=== PATIENT | female | born 1935 | race Caucasian/White ===

== ENCOUNTER 2018-08-17 17:58 | Inpatient (IN) | payer MEDICARE, OTHER ==
[2018-08-17] VITALS (12 sets, daily range): BP systolic 61–87; BP diastolic 26–45
[~2018-08-17] VITALS: Ht 157.5 cm; Wt 61.2 kg
[~2018-08-17 17:58] MED LIST: CALC-261 PO; DENO60DI SQ; ESOM40CA PO; EZET10TA13 PO; FLUT200B IH; HYDR12.55 PO; LEVO25TA9 PO; LINA5TAB PO; METF-440 PO; MONT10TA22 PO; PRED20TA PO; SIMV40TA5 PO
[2018-08-17] MEDS ORDERED: ACETAMINOPHEN ES 500 MG TABLET PO ONE (18:15)
[2018-08-17] MEDS ORDERED: IV NORMAL SALINE 1000 ML BAG IV ONE ×3 (18:15→22:15)
[2018-08-17] MEDS ORDERED: ACETAMINOPHEN ES 500 MG TABLET ONE (18:24)
[2018-08-17] MEDS ORDERED: ONDANSETRON 4 MG/2 ML VIAL ONE (18:33)
[2018-08-17] MEDS ORDERED: SIMV40TA2 PO (18:39)
[2018-08-17] MEDS ORDERED: VALS160T2 PO (18:39)
[2018-08-17] MEDS ORDERED: ONDANSETRON IV *ER 4 MG/2 ML VIAL IV ONE (18:45)
[2018-08-17 18:47] LABS: BASOPHILS # (AUTO) 0.1 K/uL (0.0-8.0); BASOPHILS % (AUTO) 0.3 % (0.0-2.0); HEMATOCRIT 25.8 % (31.2-41.9); HEMOGLOBIN 8.2 g/dL (10.9-14.3); LYMPHOCYTES # (AUTO) 1.9 K/uL (20.0-40.0); LYMPHOCYTES % (AUTO) 11.8 % (20.5-51.5); MEAN CORPUSCULAR HEMOGLOBIN 24.3 uug (24.7-32.8); MEAN CORPUSCULAR HGB CONC 32 g/dL (32.3-35.6); MEAN CORPUSCULAR VOLUME 76.1 fL (75.5-95.3); MONOCYTES # (AUTO) 0.7 K/uL (2.0-10.0); MONOCYTES % (AUTO) 4.5 % (0.0-11.0); NEUTROPHILS # (AUTO) 13.5 K/uL (1.8-8.9); NEUTROPHILS % (AUTO) 83.4 % (38.5-71.5); PLATELET COUNT (AUTO) 318 K/uL (179-408); RED BLOOD CELL COUNT(AUTO) 3.39 MIL/uL (3.63-4.92); WHITE BLOOD COUNT (AUTO) 16.2 K/uL (3.8-11.8)
[2018-08-17 18:55] LABS: CARBON DIOXIDE 27 mmol/L (21-32); CHLORIDE 102 mmol/L (98-107); CREATININE 1.4 mg/dL (0.6-1.3); GLUCOSE 94 mg/dL (74-106); POTASSIUM 3.5 mmol/L (3.5-5.1); UREA NITROGEN, BLOOD 15 mg/dL (7-18)
[2018-08-17] MEDS ORDERED: LEVOFLOXACIN 500 MG/D5W 100ML PIGGYBACK IV ONE (19:00)
[2018-08-17] MEDS ORDERED: METRONIDAZOLE 500 MG/NS 100ML 100 ML IV ONE ×2 (19:00→19:07)
[2018-08-17] MEDS ORDERED: VANCOMYCIN IV 1,000 MG in IV DEXTROSE 5% 250 ML IV ONE (19:00)
[2018-08-17 19:07] LABS: ALANINE AMINOTRANSFERASE 20 U/L (14-59); ALKALINE PHOSPHATASE 47 U/L (50-136); ASPARTATE AMINOTRANSFERASE 32 U/L (15-37); BILIRUBIN,DIRECT 0.1 mg/dL (0.0-0.2); BILIRUBIN,TOTAL 0.3 mg/dL (0.2-1.0); TOTAL PROTEIN, SERUM 6.7 g/dL (6.4-8.2)
[2018-08-17] MEDS ORDERED: MORPHINE SULFATE 4 MG/1 ML DISP.SYRIN IV ONE (19:15)
[2018-08-17] MEDS ORDERED: MORPHINE SULFATE 4 MG/1 ML DISP.SYRIN ONE (19:17)
[2018-08-17 19:37] LABS: ABG BASE EXCESS -1.1 mmol/L; ABG HCO3 23.3 mmol/L; ABG PCO2 37.4 mmHg (35.0-45.0); ABG PH 7.413 (7.350-7.450); ABG PO2 85.7 mmHg (75.0-100.0); ABG SITE LEFT BRACHIAL; ABG TOTAL HEMOGLOBIN 8.3 G/dL (12.0-16.0); COHb 1.6 % (0.5-1.5); MetHb 0.3 % (0.0-1.5); O2Hb 94.5 % (94.0-97.0); VENT MODE Nasal Cannula
[2018-08-17] MEDS ORDERED: LEVOFLOXACIN 500 MG/D5W 100 ML ONE (19:45)
--- NOTE | 2018-08-17 19:56 | NUR ---
Paged Dr. Mason Acosta for [facility] panel call, awaiting call back - attempt #1
--- NOTE | 2018-08-17 19:58 | NUR ---
YAMILKA LAROSE ON THE PHONE W/ DR. TEX BORJAS.
[2018-08-17] MEDS ORDERED: ONDANSETRON 4 MG/2 ML VIAL IV PRN (20:30)
[2018-08-17] MEDS ORDERED: Z GUARD REMEDY PASTE 57 GM TUBE TOP PRN (20:30)
[2018-08-17] MEDS ORDERED: ENOXAPARIN SODIUM 40 MG/0.4 ML DISP.SYRIN SQ SCH (20:30)
[2018-08-17] MEDS ORDERED: MAGNESIUM HYDROXIDE 30 ML LIQUID UDC PO PRN (20:30)
[2018-08-17] MEDS ORDERED: VANCOMYCIN IV 200 ML ONE (20:33)
[2018-08-17 20:42] LABS: *BILIRUBIN,URIN 1+ (NEGATIVE); *BLOOD, URINE 3+ (NEGATIVE); *CLARITY,URINE SLIGHTLY CLOUDY (CLEAR); *COLOR,URINE DARK YELLOW (YELLOW); *KETONES,URINE TRACE (NEGATIVE); *PROTEIN,URINE 2+ (NEGATIVE); *UROBILINOGEN,URINE 0.2 E.U./dl (NORMAL); LEUKOCYTE ESTERASE ,URINE NEGATIVE (NEGATIVE); NITRITE, URINE NEGATIVE (NEGATIVE); UGLUCOSE NEGATIVE (NEGATIVE)
[2018-08-17 21:05] LABS: MUCUS,URINE MANY /LPF (0-FEW); RBC,URINE 20-50 /HPF (0-3); SQUAMOUS EPITHELIAL CELL,UR FEW /HPF (NONE SEEN); WBC,URINE 0-3 /HPF (0-3)
--- NOTE | 2018-08-17 21:20 | NUR ---
Ultrasound at bedside.
--- NOTE | 2018-08-17 21:43 | NUR ---
Report given to Aminata EWING Tele.
--- NOTE | 2018-08-17 21:50 | NUR ---
Pt placed in trendelenburg position, fluid bolus started.
--- NOTE | 2018-08-17 21:50 | NUR ---
Pt's blood pressure low. MD notified.
[2018-08-17] MEDS ORDERED: CEFTRIAXONE 1 G in IV DEXTROSE 5% 50 ML IV SCH (22:30)
[2018-08-17] MEDS ORDERED: AZITHROMYCIN IV 500 MG in IV DEXTROSE 5% 250 ML IV SCH (23:00)
--- NOTE | 2018-08-17 23:10 | NUR ---
NSG: pt received fr er via gurney with dx of sepsis, pneumonia. a/o x 4. tele, NSR. however, pt is hypotensive with bp of 79/39 HR 110, 62/27 HR 75, on 4L nc saturating only at 84%. pt is asymptomatic. MOBILE MARKETING MANAGER is called. see documented bp's. charge nurse, supervisor parking lot, RT are aware.
--- NOTE | 2018-08-17 23:20 | NUR ---
nsg: pt currently receving ns bolus fr ER that was not infused. l/m with Dr. Cisse regarding hypotension. awaiting call back.
--- NOTE | 2018-08-17 23:50 | NUR ---
nsg: called exchange and paged Dr. Mason Acosta. awaiting call back.
[2018-08-18] VITALS (69 sets, daily range): BP systolic 66–143; BP diastolic 33–83
[2018-08-18] MEDS ORDERED: AZITHROMYCIN 500 MG VIAL IV ONE (00:32)
[2018-08-18] MEDS ORDERED: CEFTRIAXONE 1 G VIAL ONE (00:32)
--- NOTE | 2018-08-18 01:00 | NUR ---
nsg: paged Dr. Yin, equipment monitor phototypesetting for Dr. Acosta to notify regarding pt being hypotensive. awaiting call back.
--- NOTE | 2018-08-18 01:30 | NUR ---
nsrd ns bolus completed. bp is now 68/33, hr 68. paged Dr. Yin. received order to transfer to icu. charge nurse, supervisor cell efficiency aware.
--- NOTE | 2018-08-18 01:30 | NUR ---
nsg: unable to take pictures of left later malleolus pressure ulcer and right 2nd toe pressure ulcer. pt is very hypotensive. endorsed to GILDARDO Oconnor in ccu. per nurse, will take photos.
--- NOTE | 2018-08-18 01:40 | NUR ---
BIB BED TO ICU, PT A/A/O TIMES 4,NO DISTRESS NOTED OR VOICED. SKIN WARM AND DRY.
--- NOTE | 2018-08-18 01:50 | NUR ---
nsg: pt transferred to icu, report given to GILDARDO Oconnor.
[2018-08-18] MEDS: IV NS 1000 ML 1,000 ML IV PRN ×2 (02:15→22:06)
--- NOTE | 2018-08-18 02:25 | NUR ---
INFORMED DR. SEAY ABOUT B/P 66,,GOT ORDER FOR LEVOPHED.
[2018-08-18] MEDS ORDERED: NOREPINEPHRINE BITARTRATE 4 MG/4 ML VIAL IV ONE (02:30)
[2018-08-18] MEDS ORDERED: NOREPINEPHRINE BITARTRATE 8 MG in IV DEXTROSE 5% 500 ML IV PRN ×4 (02:30)
--- NOTE | 2018-08-18 02:35 | NUR ---
STARTED LEVOPHED, AT 5MCG, BUT WAS UNABLE TO SCAN THE MED.
[2018-08-18 06:18] LABS: HEMATOCRIT 23.1 % (31.2-41.9); LYMPHOCYTES # (AUTO) 0.4 K/uL (20.0-40.0); LYMPHOCYTES % (AUTO) 3.5 % (20.5-51.5); MEAN CORPUSCULAR HEMOGLOBIN 24.3 uug (24.7-32.8); MEAN CORPUSCULAR HGB CONC 32 g/dL (32.3-35.6); MEAN CORPUSCULAR VOLUME 76.3 fL (75.5-95.3); MONOCYTES # (AUTO) 0.5 K/uL (2.0-10.0); MONOCYTES % (AUTO) 4.2 % (0.0-11.0); NEUTROPHILS # (AUTO) 10.4 K/uL (1.8-8.9); NEUTROPHILS % (AUTO) 92.3 % (38.5-71.5); PLATELET COUNT (AUTO) 265 K/uL (179-408); RED BLOOD CELL COUNT(AUTO) 3.02 MIL/uL (3.63-4.92); WHITE BLOOD COUNT (AUTO) 11.3 K/uL (3.8-11.8)
[2018-08-18 06:30] LABS: HEMOGLOBIN 7.4 g/dL (10.9-14.3)
[2018-08-18 06:35] LABS: CARBON DIOXIDE 24 mmol/L (21-32); CHLORIDE 111 mmol/L (98-107); CHOLESTEROL 86 mg/dL (<200); CREATININE 1.1 mg/dL (0.6-1.3); GLUCOSE 154 mg/dL (74-106); HDL CHOLESTEROL 73 mg/dL (40-60); MAGNESIUM 1.3 mg/dL (1.8-2.4); PHOSPHOROUS 3.5 mg/dL (2.5-4.9); POTASSIUM 3.9 mmol/L (3.5-5.1); TRIGLYCERIDES 47 MG/DL (30-150); UREA NITROGEN, BLOOD 15 mg/dL (7-18)
--- NOTE | 2018-08-18 06:40 | NUR ---
DR SEAY INFORMED OF HGB 7.4. NO ORDERS OBTAINED.
[2018-08-18 06:42] LABS: THYROID STIMULATING HORMONE 0.934 mIU/mL (0.358-3.740)
--- NOTE | 2018-08-18 07:00 | NUR ---
CONTINUES TO NEED PRESSOR TO SUPPORT B/P,SATS 98 % ON 2 L
--- NOTE | 2018-08-18 08:00 | NUR ---
DOCTOR KOLTON IN UNIT TO SEE PATIENT.
[2018-08-18] MEDS ORDERED: DEXTROSE 50% 50 ML DISP.SYRIN IV PRN (08:15)
[2018-08-18] MEDS: LEVOTHYROXINE SODIUM 25 MCG TABLET PO SCH (08:29)
[2018-08-18] MEDS: MAGNESIUM SULFATE/D5W 100 ML IV SCH ×2 (08:29→11:07)
[2018-08-18] MEDS: PANTOPRAZOLE SODIUM 40 MG TABLET.DR PO SCH (08:29)
[2018-08-18] MEDS: VALSARTAN 160 MG TABLET PO SCH (08:31)
[2018-08-18] MEDS: LEVOFLOXACIN 750MG/D5W 750 MG in PREMIXED 1 EACH IV SCH (08:31)
[2018-08-18] MEDS ORDERED: METFORMIN HCL 500 MG TABLET PO SCH (09:00)
[2018-08-18] MEDS: FLUTICASONE/VILANTEROL 1 EACH BLST.W.DEV INH SCH (09:00)
[2018-08-18] MEDS ORDERED: CEFEPIME HCL 2 G in IV DEXTROSE 5% 100 ML IV ONE (09:00)
[2018-08-18] MEDS: BLOOD SUGAR DIAGNOSTIC 1 EACH STRIP VI SCH ×4 (09:20→21:19)
[2018-08-18] MEDS: HYDROCODONE/APAP 5-325MG TABLET PO PRN ×2 (09:22→20:30)
[2018-08-18] MEDS: predniSONE 20 MG TABLET PO SCH (09:24)
[2018-08-18] MEDS: EZETIMIBE 10 MG TABLET PO SCH (09:26)
[2018-08-18] MEDS: LIDOCAINE 5% PATCH TD SCH (09:26)
[2018-08-18] MEDS: INSULIN REGULAR, HUMAN 300 UNIT/3 ML VIAL SQ PRN ×2 (09:30→17:09)
--- NOTE | 2018-08-18 10:00 | NUR ---
PT IN THE ROOM WORKING WITH PATIENT. PATIENT IS ONLY ABLE TO SIT UP IN BED AND PATIENT STARTED TO COMPLAIN OF SOB WHEN GETTING OUT OF BED. PATIENT SATURATION STABLE PRIOR TO WORKING WITH PATIENT.
[2018-08-18] MEDS: CEFEPIME HCL 2 G in IV DEXTROSE 5% 100 ML IV SCH (11:07)
--- NOTE | 2018-08-18 11:55 | NUR ---
WOUND CARE CONSULT: PT PRESENTS WITH DRY ULCERS TO BILATERAL FEET, PRESENT ON ADMISSION. RECOMMEND DPM CONSULT. PT ABLE TO ASSIST WITH TURNING AND REPOSITIONING IN BED. ALL SKIN PROTECTION MEASURES IN PLACE AND DISCUSSED WITH NURSING STAFF. WILL SEE PRN. LAROSE IN AGREEMENT WITH PLAN OF CARE. Addendum: 08/18/18 at 1157 by VALERI ADAMS RN Amended: Links added.
--- NOTE | 2018-08-18 12:08 | NUR ---
doctor jenniffer and station usher in unit for new consult.
--- NOTE | 2018-08-18 14:30 | NUR ---
PODIATRY IN THE UNIT FOR NEW CONSULTATION. RECOMMENDS OINMENT TREATEMENT TO WOUND
[2018-08-18] MEDS: MONTELUKAST SODIUM 10 MG TABLET PO SCH (17:02)
[2018-08-18] MEDS: SIMVASTATIN 40 MG TABLET PO SCH (17:02)
--- NOTE | 2018-08-18 20:00 | NUR ---
Pt in room alert awake in no acute distress. States pain to lower back area. No s/s of hyper/hypoglycemia. Maintaining IV fluids NS at 75cc/hr. Able to make needs known. Reminded pt to request for assistance when needed. BNo adverse effect to previous antibiotic therapy earlier today. No levophed at this time as SBP is >90. Pt on continuous 2L/min via n/c. No fever or chills. Encouraged patient on fluids and safety. Able to reposition self. Call light within reach. Will continue to monitor. school lunch monitor sinus rhythm.
[2018-08-18] MEDS ORDERED: DEXTROSE 5% IV SCH (21:00)
[2018-08-18] MEDS ORDERED: CEFEPIME HCL IV SCH (21:00)
[2018-08-19] VITALS (23 sets, daily range): BP systolic 99–145; BP diastolic 47–84
[2018-08-19 05:18] LABS: EOSINOPHILS # (AUTO) 0.2 K/uL (0.0-0.7); MONOCYTES # (AUTO) 0.5 K/uL (2.0-10.0); NEUTROPHILS # (AUTO) 7.7 K/uL (1.8-8.9)
[2018-08-19 05:19] LABS: BASOPHILS % (AUTO) 0.3 % (0.0-2.0); EOSINOPHILS % (AUTO) 2.3 % (0.0-7.0); LYMPHOCYTES # (AUTO) 0.4 K/uL (20.0-40.0); LYMPHOCYTES % (AUTO) 4.6 % (20.5-51.5); MEAN CORPUSCULAR HEMOGLOBIN 24.3 uug (24.7-32.8); MEAN CORPUSCULAR HGB CONC 33 g/dL (32.3-35.6); MEAN CORPUSCULAR VOLUME 74.1 fL (75.5-95.3); MONOCYTES % (AUTO) 6.2 % (0.0-11.0); NEUTROPHILS % (AUTO) 86.6 % (38.5-71.5); PLATELET COUNT (AUTO) 207 K/uL (179-408); RED BLOOD CELL COUNT(AUTO) 2.66 MIL/uL (3.63-4.92); WHITE BLOOD COUNT (AUTO) 8.9 K/uL (3.8-11.8)
[2018-08-19 05:27] LABS: CARBON DIOXIDE 24 mmol/L (21-32); CHLORIDE 113 mmol/L (98-107); GLUCOSE 112 mg/dL (74-106); MAGNESIUM 1.9 mg/dL (1.8-2.4); PHOSPHOROUS 2.2 mg/dL (2.5-4.9); POTASSIUM 3.6 mmol/L (3.5-5.1); UREA NITROGEN, BLOOD 14 mg/dL (7-18)
[2018-08-19 05:37] LABS: HEMATOCRIT 19.7 % (31.2-41.9); HEMOGLOBIN 6.5 g/dL (10.9-14.3)
[2018-08-19 06:07] LABS: LYMPHOCYTES % (MANUAL) 10 % (20-40); METAMYELOCYTES % 1 % (0-1); MONOCYTES % (MANUAL) 1 % (2-10); MYELOCYTES % 3 % (0-0); NEUTROPHILS % (MANUAL) 84 % (42-75)
--- NOTE | 2018-08-19 06:12 | NUR ---
PT'S CRITICAL LAB VALUE OF HGB REPORTED 6.5. PHONE CALL MADE FOR REBECA SEAY DENT REMOVER. NO ACTIVE BLEEDING NOTED AT THIS TIME.
--- NOTE | 2018-08-19 06:34 | NUR ---
REBECA SEAY RETURNED CALL REGARDING HGB OF 6.5 AND ORDERED TO INFUSE 1 UNIT PRBC.
--- NOTE | 2018-08-19 06:57 | NUR ---
NO S/S OF ACUTE DISTRESS OVERNIGHT. ABLE TO SLEEP 4-5 HOURS. BUSHEL WORKER MAINTAINING SINUS RHYTHM. ABLE TO MAKE NEEDS KNOWN. MAINTAINING IV FLUIDS NS AT 75CC/HR. NO S/S OF HYPER/HYPOGLYCEMIA. SAFETY MEASURES ENFORCED. CALL LIGHT WITHIN REACH.
--- NOTE | 2018-08-19 07:14 | NUR ---
PT STATED SHE WANTS HER PROTONIX AND NORCO TOGETHER AFTER BREAKFAST. WILL ENDORSE TO DAY SHIFT. NURSE.
--- NOTE | 2018-08-19 07:46 | NUR ---
ERGONOMICS CONSULTANT RIGHT FOOT WOUND TREATMENTS CLARIFIED WITH DPM.
[2018-08-19] MEDS: PANTOPRAZOLE SODIUM 40 MG TABLET.DR PO SCH (07:57)
[2018-08-19] MEDS: LEVOTHYROXINE SODIUM 25 MCG TABLET PO SCH (07:57)
[2018-08-19] MEDS: BLOOD SUGAR DIAGNOSTIC 1 EACH STRIP VI SCH ×4 (08:04→20:10)
[2018-08-19] MEDS: VALSARTAN 160 MG TABLET PO SCH (08:38)
[2018-08-19] MEDS: THERAHONEY GEL 1.5 OZ TUBE TOP SCH (08:39)
[2018-08-19] MEDS: LIDOCAINE 5% PATCH TD SCH (08:39)
[2018-08-19] MEDS: EZETIMIBE 10 MG TABLET PO SCH (08:39)
[2018-08-19] MEDS: predniSONE 20 MG TABLET PO SCH (08:39)
[2018-08-19] MEDS: FLUTICASONE/VILANTEROL 1 EACH BLST.W.DEV INH SCH (08:56)
[2018-08-19] MEDS ORDERED: COLLAGENASE OINT 30 GM TUBE TOP SCH (09:00)
[2018-08-19] MEDS: CEFEPIME HCL 2 G in IV DEXTROSE 5% 100 ML IV SCH (09:39)
--- NOTE | 2018-08-19 09:45 | NUR ---
Nursing Note: Respirations unlabored with 02 at 1lpm via NC. Consumed 100% of breakfast. Skin clean and dry intact. Wounds noted on bilateral feet. Treatment provided as ordered. BGL 115. No insulin indication. 1 unit of RBC began at 0917. No transfusion reaction noted at this time. Bed in low and locked position. Call light in reach. Frequent visual checks done throughout shift. .
--- NOTE | 2018-08-19 11:43 | NUR ---
Spoke with Dr. Cuevas on the telephone. Full report given. stated that it was okay to downgrade pt to telemetry status.
[2018-08-19 12:17] LABS: IRON, SERUM 7 ug/dL (50-175)
--- NOTE | 2018-08-19 13:30 | NUR ---
Transferred pt to 208-T with GILDARDO Masterson. Pt stable and nad noted upon transfer.
[2018-08-19] MEDS: IV NS 1000 ML 1,000 ML IV PRN (15:26)
[2018-08-19] MEDS ORDERED: NEUTRA PHOS PACKET PO ONE (16:15)
[2018-08-19] MEDS: HYDROCODONE/APAP 5-325MG TABLET PO PRN (16:42)
[2018-08-19 17:29] LABS: HEMATOCRIT 25.5 % (31.2-41.9); HEMOGLOBIN 8.4 g/dL (10.9-14.3)
--- NOTE | 2018-08-19 18:09 | NUR ---
PATIENT WAS TRANSFERRED FROM CCU TO ROOM-208 ON TELEMETRY. PATIENT REMAINS IN STABLE CONDITION. PATIENT DENIES ANY PAIN OR DISCOMFORT. PATIENT SHOWS NO SIGNS OF DISTRESS. PATIENT IS COMPLIANT WITH MEDICAL TREATMENT AND REGIMEN. PATIENT HEMOGLOBIN INCREASE TO 8.4 AFTER 1 UNIT INFUSION OF BLOOD IN CCU. PATIENT IS ALERT AND ORIENTED X4. PATIENT IS ABLE TO VOCALIZE NEEDS. NURSE FROM CCU REPORTED THAT PATIENT HAS A BM PRIOR TO TRANSFER. PATIENTS BM WAS HARD, FORMED, BIG AND BROWN. WILL CONTINUE TO MONITOR PATIENT CLOSELY.
[2018-08-19] MEDS: SIMVASTATIN 40 MG TABLET PO SCH (18:23)
[2018-08-19] MEDS: MONTELUKAST SODIUM 10 MG TABLET PO SCH (18:23)
--- NOTE | 2018-08-19 19:45 | NUR ---
Received pt awake sitting in bed, alert and oriented x3. Farsi speaking but understands [place]. Discussed and reviewed plan of care. Pt compliant with care. Antibiotic therapy noted. Pt has no complaints of pain, SOB or severe headache at this time. Pt shows no s/s of acute distress. Safety precautions implemented. Bed on lowest position, call light within reach. Will continue to monitor pt and carry out all orders.
[2018-08-19] MEDS: LACTOBACILLUS RHAMNOSUS GG 1 EACH CAPSULE PO SCH (20:06)
[2018-08-20 03:35] VITALS: BP 152/79
[2018-08-20] MEDS: ACETAMINOPHEN 325 MG TABLET PO PRN (04:56)
[2018-08-20 06:41] LABS: BASOPHILS % (AUTO) 0.3 % (0.0-2.0); EOSINOPHILS # (AUTO) 0.2 K/uL (0.0-0.7); EOSINOPHILS % (AUTO) 2.2 % (0.0-7.0); HEMATOCRIT 24.4 % (31.2-41.9); HEMOGLOBIN 8.1 g/dL (10.9-14.3); LYMPHOCYTES # (AUTO) 0.8 K/uL (20.0-40.0); LYMPHOCYTES % (AUTO) 9.1 % (20.5-51.5); MEAN CORPUSCULAR HEMOGLOBIN 25.4 uug (24.7-32.8); MEAN CORPUSCULAR HGB CONC 33 g/dL (32.3-35.6); MEAN CORPUSCULAR VOLUME 76.6 fL (75.5-95.3); MONOCYTES # (AUTO) 0.7 K/uL (2.0-10.0); MONOCYTES % (AUTO) 7.5 % (0.0-11.0); NEUTROPHILS # (AUTO) 7.4 K/uL (1.8-8.9); NEUTROPHILS % (AUTO) 80.9 % (38.5-71.5); PLATELET COUNT (AUTO) 222 K/uL (179-408); RED BLOOD CELL COUNT(AUTO) 3.19 MIL/uL (3.63-4.92); WHITE BLOOD COUNT (AUTO) 9.1 K/uL (3.8-11.8)
[2018-08-20 06:44] LABS: CARBON DIOXIDE 22 mmol/L (21-32); CHLORIDE 111 mmol/L (98-107); CREATININE 0.8 mg/dL (0.6-1.3); GLUCOSE 97 mg/dL (74-106); MAGNESIUM 1.7 mg/dL (1.8-2.4); PHOSPHOROUS 1.7 mg/dL (2.5-4.9); POTASSIUM 3.5 mmol/L (3.5-5.1); UREA NITROGEN, BLOOD 9 mg/dL (7-18)
[2018-08-20] MEDS: LEVOTHYROXINE SODIUM 25 MCG TABLET PO SCH (06:45)
[2018-08-20] MEDS: IV NS 1000 ML 1,000 ML IV PRN (06:45)
--- NOTE | 2018-08-20 06:45 | NUR ---
Pt slept intermittently throughout the night. Pt awake, alert and oriented x3, cooperative with care. Tele SR with HR 70. O2 sat 98% via 2L NC. Pt has no complaints of pain, SOB at this time. Kept pt dry and clean throughout the night. Safety precautions maintained at all times. Call light within reach. Will endorse accordingly.
[2018-08-20] MEDS: BLOOD SUGAR DIAGNOSTIC 1 EACH STRIP VI SCH ×4 (06:47→20:20)
[2018-08-20] MEDS: LACTOBACILLUS RHAMNOSUS GG 1 EACH CAPSULE PO SCH ×2 (07:51→20:19)
[2018-08-20] MEDS: PANTOPRAZOLE SODIUM 40 MG VIAL IV SCH (07:51)
[2018-08-20] MEDS: LEVOFLOXACIN 750MG/D5W 750 MG in PREMIXED 1 EACH IV SCH (09:00)
[2018-08-20] MEDS: FLUTICASONE/VILANTEROL 1 EACH BLST.W.DEV INH SCH (09:00)
[2018-08-20] MEDS: THERAHONEY GEL 1.5 OZ TUBE TOP SCH (09:00)
[2018-08-20] MEDS: DOCUSATE SODIUM 250 MG CAPSULE PO SCH (10:22)
[2018-08-20] MEDS: VALSARTAN 160 MG TABLET PO SCH (10:23)
[2018-08-20] MEDS: predniSONE 20 MG TABLET PO SCH (10:24)
[2018-08-20] MEDS: LIDOCAINE 5% PATCH TD SCH (10:24)
[2018-08-20] MEDS: EZETIMIBE 10 MG TABLET PO SCH (10:24)
[2018-08-20 11:13] VITALS: BP 140/74
[2018-08-20] MEDS: MAGNESIUM SULFATE/D5W 100 ML IV SCH ×2 (12:43→14:58)
[2018-08-20] MEDS: NEUTRA PHOS PACKET PO ONE ×2 (15:30→16:54)
[2018-08-20 15:36] VITALS: BP 151/79
[2018-08-20] MEDS: MONTELUKAST SODIUM 10 MG TABLET PO SCH (17:53)
[2018-08-20] MEDS: SIMVASTATIN 40 MG TABLET PO SCH (17:54)
[2018-08-20 20:17] VITALS: BP 153/69
[2018-08-21] VITALS: BP 158/79
[2018-08-21] MEDS: ACETAMINOPHEN 325 MG TABLET PO PRN (03:13)
[2018-08-21] MEDS: VALSARTAN 160 MG TABLET PO SCH (03:21)
[2018-08-21 04:05] VITALS: BP 156/79
--- NOTE | 2018-08-21 06:20 | NUR ---
Patient rested well in between care; no acute distress; c/o pain during the shift and medicated with tylenol; pt's IVF held per patient's request; assisted with hygiene needs; blood pressure this AM elevated sbp 160s; pt requested diovan to be given early; current BP 136/60; continue to monitor; continue plan of care.
[2018-08-21 06:33] VITALS: BP 136/60
[2018-08-21] MEDS: BLOOD SUGAR DIAGNOSTIC 1 EACH STRIP VI SCH ×4 (06:33→20:25)
[2018-08-21] MEDS: LEVOTHYROXINE SODIUM 25 MCG TABLET PO SCH (06:35)
[2018-08-21 06:52] LABS: CARBON DIOXIDE 24 mmol/L (21-32); CHLORIDE 110 mmol/L (98-107); CREATININE 0.7 mg/dL (0.6-1.3); GLUCOSE 84 mg/dL (74-106); POTASSIUM 3.7 mmol/L (3.5-5.1); UREA NITROGEN, BLOOD 6 mg/dL (7-18)
--- NOTE | 2018-08-21 07:41 | NUR ---
RECEIVED PATIENT ON BED, RESTING WELL . NO DISTRESS NOTED.
--- NOTE | 2018-08-21 07:45 | NUR ---
right foot swollen, light redness
--- NOTE | 2018-08-21 08:30 | NUR ---
SPOUSE AT BEDSIDE, SUPPORTIVE OF PATIENT CARE. PATIENT OF SPOUSE VISIT.
[2018-08-21] MEDS: DOCUSATE SODIUM 250 MG CAPSULE PO SCH (09:00)
[2018-08-21] MEDS: LIDOCAINE 5% PATCH TD SCH (09:07)
[2018-08-21] MEDS: EZETIMIBE 10 MG TABLET PO SCH (09:08)
[2018-08-21] MEDS: PANTOPRAZOLE SODIUM 40 MG VIAL IV SCH (09:08)
[2018-08-21] MEDS: LACTOBACILLUS RHAMNOSUS GG 1 EACH CAPSULE PO SCH ×2 (09:08→20:22)
[2018-08-21] MEDS: predniSONE 20 MG TABLET PO SCH (09:10)
[2018-08-21] MEDS: FLUTICASONE/VILANTEROL 1 EACH BLST.W.DEV INH SCH (09:13)
[2018-08-21] MEDS: THERAHONEY GEL 1.5 OZ TUBE TOP SCH (09:36)
[2018-08-21 11:25] VITALS: BP 134/74
--- NOTE | 2018-08-21 12:00 | NUR ---
PATIENT REFUSED LUNCH, ATE FOOD FROM OUTSIDE. PATIENT AWARE OF ORDERED DIET AT HOSPITAL, NEED TO CHECK BS PRIOR TO EATING. VERBALIZED UNDERSTANDING.
[2018-08-21] MEDS ORDERED: NEUTRA PHOS PACKET PO ONE (12:45)
--- NOTE | 2018-08-21 13:06 | NUR ---
SON AT BEDSIDE FOR VISIT, SUPPORTIVE OF PATIENT CARE.
[2018-08-21] MEDS: IV NS 1000 ML 1,000 ML IV PRN (13:21)
--- NOTE | 2018-08-21 13:30 | NUR ---
AWARE REQUEST FOR EGD, COLONOSCOPY. PREFER TO SIGN CONCERT WHEN SON VISITS BUT AGREED TO DO PREPARATION.VERBalized understanding clear liquid starts dinner.
[2018-08-21] MEDS: AMLODIPINE 5 MG TABLET PO SCH ×2 (13:52→20:23)
[2018-08-21] MEDS: SOD FERRIC GLUC COMPLX/SUCROSE 125 MG in IV NORMAL SALINE 100 ML IV SCH (15:04)
[2018-08-21 15:07] VITALS: BP 152/76
--- NOTE | 2018-08-21 15:19 | NUR ---
SEEN BY DR SAWYER, MADE ORDER AND CARRIED OUT.
[2018-08-21] MEDS: MONTELUKAST SODIUM 10 MG TABLET PO SCH (17:28)
[2018-08-21] MEDS: SIMVASTATIN 40 MG TABLET PO SCH (17:28)
[2018-08-21] MEDS: INSULIN REGULAR, HUMAN 300 UNIT/3 ML VIAL SQ PRN (17:31)
--- NOTE | 2018-08-21 17:45 | NUR ---
COMFORTABLE. DENIES ACUTE DISTRESS. APPETITE GOOD, VOIDING WELL. STARTED CLEAR LIQUID, AWARE TILL GI PROCEDURE . VERBALIZED UNDERSTANDING.
[2018-08-21 20:01] VITALS: BP 138/64
[2018-08-22] VITALS: BP 134/73
[2018-08-22] MEDS: TRAMADOL HCL 50 MG TABLET PO PRN ×2 (01:31→02:48)
--- NOTE | 2018-08-22 01:33 | NUR ---
pNT WOKE UP AND COMPLAINED ABOUT HEADACHE, ULTRAM 50 MG WAS GIVEN
[2018-08-22] MEDS: IV NS 1000 ML 1,000 ML IV PRN ×2 (02:42→18:00)
--- NOTE | 2018-08-22 03:04 | NUR ---
MISTAKE WAS MADE, INSTEAD OF REASSESSMENT ADMINISTER BUTTON WAS PUSHED TWICE. uLTRAM 50 MG WAS GIVEN ONLY ONE TIME AT 01.31AM AND REASSESSMENT WAS DONE AT 02.42AM.
[2018-08-22 04:01] VITALS: BP 137/64
[2018-08-22] MEDS ORDERED: LEVOFLOXACIN 750 MG TABLET PO SCH ×2 (06:00→10:36)
[2018-08-22 06:24] LABS: CARBON DIOXIDE 24 mmol/L (21-32); CHLORIDE 110 mmol/L (98-107); CREATININE 0.6 mg/dL (0.6-1.3); GLUCOSE 84 mg/dL (74-106); POTASSIUM 3.5 mmol/L (3.5-5.1); UREA NITROGEN, BLOOD 7 mg/dL (7-18)
[2018-08-22] MEDS: BLOOD SUGAR DIAGNOSTIC 1 EACH STRIP VI SCH ×4 (06:25→20:08)
[2018-08-22] MEDS: PANTOPRAZOLE SODIUM 40 MG TABLET.DR PO SCH (06:26)
[2018-08-22] MEDS: LEVOTHYROXINE SODIUM 25 MCG TABLET PO SCH (06:30)
--- NOTE | 2018-08-22 07:50 | NUR ---
Recevied patient awake on low back rest, on oxygen support via nasal cannula, maintained. Noted with IVF infusing well. Will maintain on clear liquids, scheduled for colonoscopy. Bed in lowest position, side rails kept up x 2, call light within reach. Will continue to monitor.
[2018-08-22] MEDS ORDERED: MAGNESIUM CITRATE 296 ML BOTTLE PO ONE (08:00)
[2018-08-22] MEDS ORDERED: GOLYTELY 4000 ML BOTTLE PO ONE (08:00)
[2018-08-22] MEDS: LACTOBACILLUS RHAMNOSUS GG 1 EACH CAPSULE PO SCH ×2 (08:22→20:08)
[2018-08-22] MEDS: DOCUSATE SODIUM 250 MG CAPSULE PO SCH (08:22)
[2018-08-22] MEDS: EZETIMIBE 10 MG TABLET PO SCH (08:22)
[2018-08-22] MEDS: VALSARTAN 160 MG TABLET PO SCH (08:26)
[2018-08-22] MEDS: AMLODIPINE 5 MG TABLET PO SCH ×2 (08:26→20:05)
[2018-08-22] MEDS: predniSONE 20 MG TABLET PO SCH (08:27)
[2018-08-22] MEDS: FLUTICASONE/VILANTEROL 1 EACH BLST.W.DEV INH SCH (08:40)
[2018-08-22] MEDS: THERAHONEY GEL 1.5 OZ TUBE TOP SCH (09:00)
[2018-08-22] MEDS: LIDOCAINE 5% PATCH TD SCH ×2 (09:00→10:43)
[2018-08-22] MEDS: SODIUM HYPOCHLORITE 0.125% 473 ML BOTTLE TP SCH (10:40)
[2018-08-22] MEDS: CADEXOMER IODINE 40 GM TUBE TOP SCH (10:41)
[2018-08-22 11:47] VITALS: BP 125/68
[2018-08-22] MEDS ORDERED: NEUTRA PHOS PACKET PO ONE (12:00)
[2018-08-22] MEDS: SOD FERRIC GLUC COMPLX/SUCROSE 125 MG in IV NORMAL SALINE 100 ML IV SCH (14:34)
[2018-08-22 16:03] VITALS: BP 150/77
[2018-08-22] MEDS: SIMVASTATIN 40 MG TABLET PO SCH (17:40)
[2018-08-22] MEDS: MONTELUKAST SODIUM 10 MG TABLET PO SCH (17:40)
[2018-08-22] MEDS: ASCORBIC ACID 500 MG TABLET PO SCH (17:40)
--- NOTE | 2018-08-22 18:05 | NUR ---
Patient awake in bed, alert and oriented x 4, not in any form of distress. Maintained oxygen support at 2lpm via nasal canula. IVF infusing well at right hand. Noted scheduled for colonoscopy tomorrow morning, son came and signed consent for the procedure, attached to chart. Noted patient on GI prep for colonoscopy, has had 5 bowel movements this shift but still not clear. Bed in low position, side rails up x 2, call light within reach. No complaints made at this time. Will continue to monitor.
--- NOTE | 2018-08-22 19:45 | NUR ---
Received pt sitting up in bed awake. Pt alert and oriented x3. Discussed and reviewed plan of care with pt. Pt cooperative with care. O2 sat 98% with 2L NC. Pt has no complaints at this time. Denies SOB or pain. Pt aware of scheduled EGD and colonoscopy in AM. Aware of bowel prep. Consent signed, in pt chart. Safety precautions implemented, bed in low locked position. Call light within reach. Will continue to monitor.
[2018-08-22 20:14] VITALS: BP 149/65
[2018-08-22] MEDS ORDERED: FLEET ENEMA 133 ML BOTTLE RC ONE (22:00)
--- NOTE | 2018-08-22 22:19 | NUR ---
Fleet enema non administered at 2200. Will administer at 0500 AM ONCE as ordered. Will continue to monitor pt during initial rounds.
[2018-08-23] MEDS ORDERED: FLEET ENEMA 133 ML BOTTLE RC ONE (05:00)
[2018-08-23] MEDS: ACETAMINOPHEN 325 MG TABLET PO PRN (05:07)
[2018-08-23 05:10] VITALS: BP 127/64
[2018-08-23 05:51] LABS: BASOPHILS % (AUTO) 0.4 % (0.0-2.0); EOSINOPHILS # (AUTO) 0.1 K/uL (0.0-0.7); EOSINOPHILS % (AUTO) 1.1 % (0.0-7.0); HEMATOCRIT 27.1 % (31.2-41.9); HEMOGLOBIN 8.9 g/dL (10.9-14.3); LYMPHOCYTES % (AUTO) 30.3 % (20.5-51.5); MEAN CORPUSCULAR HEMOGLOBIN 25.6 uug (24.7-32.8); MEAN CORPUSCULAR HGB CONC 33 g/dL (32.3-35.6); MEAN CORPUSCULAR VOLUME 77.5 fL (75.5-95.3); MONOCYTES # (AUTO) 0.7 K/uL (2.0-10.0); NEUTROPHILS # (AUTO) 3.8 K/uL (1.8-8.9); NEUTROPHILS % (AUTO) 58.2 % (38.5-71.5); PLATELET COUNT (AUTO) 293 K/uL (179-408); RED BLOOD CELL COUNT(AUTO) 3.49 MIL/uL (3.63-4.92); WHITE BLOOD COUNT (AUTO) 6.5 K/uL (3.8-11.8)
[2018-08-23 06:04] LABS: CARBON DIOXIDE 24 mmol/L (21-32); CHLORIDE 111 mmol/L (98-107); CREATININE 0.6 mg/dL (0.6-1.3); GLUCOSE 83 mg/dL (74-106); MAGNESIUM 1.5 mg/dL (1.8-2.4); PHOSPHOROUS 1.7 mg/dL (2.5-4.9); POTASSIUM 3.4 mmol/L (3.5-5.1); UREA NITROGEN, BLOOD 4 mg/dL (7-18)
[2018-08-23] MEDS: PANTOPRAZOLE SODIUM 40 MG TABLET.DR PO SCH (06:18)
[2018-08-23] MEDS: LEVOTHYROXINE SODIUM 25 MCG TABLET PO SCH (06:39)
[2018-08-23] MEDS: IV NS 1000 ML 1,000 ML IV PRN (06:47)
[2018-08-23] MEDS: BLOOD SUGAR DIAGNOSTIC 1 EACH STRIP VI SCH ×4 (06:47→20:14)
--- NOTE | 2018-08-23 06:57 | NUR ---
Enema administered as ordered x1. Pt tolerated well. Pt BM x3 during the night - stool brown and liquid. Kept pt dry and clean. O2 sat 96% via 2L NC. Pt shows no s/s acute distress. Pt denies pain, SOB or severe headache. Wound care provided. Legs raised in bed. Comfort measures maintained at all times. Call light within reach. Will endorse plan of care to day shift nurse.
[2018-08-23] MEDS: LEVOFLOXACIN 750 MG TABLET PO SCH (08:00)
[2018-08-23] MEDS: PROTEIN SUPPLEMENT (PROSTAT) 30 ML LIQUID PO SCH (08:00)
--- NOTE | 2018-08-23 08:00 | NUR ---
AWAKE ALERT COOPERATE WELL NPO FOR EGD AND COLONOSCOPY TODAY NO SOB OR PAIN RESTING WELL WITH CALL LIGHT IN REACH AND INSTRUCTION TO CALL WHEN NEED
[2018-08-23] MEDS ORDERED: POTASSIUM PHOSPHATE MM 5 MMOL in IV DEXTROSE 5% 100 ML IV SCH (08:45)
--- NOTE | 2018-08-23 08:45 | NUR ---
TO GI LAB VIA BED CONDITION STABLE
[2018-08-23] MEDS: FLUTICASONE/VILANTEROL 1 EACH BLST.W.DEV INH SCH (08:50)
[2018-08-23] MEDS: DOCUSATE SODIUM 250 MG CAPSULE PO SCH (09:00)
[2018-08-23] MEDS ORDERED: PROPOFOL 200 MG/20 ML BOTTLE IV ONE (10:18)
[2018-08-23] MEDS ORDERED: IV NORMAL SALINE 1000 ML BAG IV ONE (10:18)
[2018-08-23] MEDS ORDERED: IRR STERIL WATER FOR IRR 1000 ML BOTTLE IR ONE (10:18)
[2018-08-23 11:00] VITALS: BP 130/64
[2018-08-23] MEDS: MAGNESIUM SULFATE/D5W 100 ML IV SCH ×2 (11:00→13:44)
--- NOTE | 2018-08-23 11:00 | NUR ---
BACK TO ROOM VS TAKEN STABLE START MG IVPB ORDER
--- NOTE | 2018-08-23 11:15 | NUR ---
IV SITE WAS INFILTRATE ,WILL RESTART A NEW ONE
[2018-08-23] MEDS ORDERED: LEVO750T21 PO (11:18)
[2018-08-23] MEDS ORDERED: FERR325T28 PO (11:19)
[2018-08-23] MEDS: MULTIVIT, IRON, MIN NO. 8, FA TABLET PO SCH (11:28)
[2018-08-23] MEDS: ZINC SULFATE 220 MG CAPSULE PO SCH (11:28)
[2018-08-23] MEDS: LACTOBACILLUS RHAMNOSUS GG 1 EACH CAPSULE PO SCH ×2 (11:29→20:17)
[2018-08-23] MEDS: EZETIMIBE 10 MG TABLET PO SCH (11:29)
[2018-08-23] MEDS: AMLODIPINE 5 MG TABLET PO SCH ×2 (11:30→20:17)
[2018-08-23] MEDS: ASCORBIC ACID 500 MG TABLET PO SCH ×2 (11:30→16:40)
[2018-08-23] MEDS: predniSONE 20 MG TABLET PO SCH (11:30)
[2018-08-23] MEDS: VALSARTAN 160 MG TABLET PO SCH (11:30)
--- NOTE | 2018-08-23 11:30 | NUR ---
TRY TO RESTART A NEW ONE ON LFA BUT UNABLE , WILL TRY AGAIN AFTER LUNCH
[2018-08-23] MEDS: SODIUM HYPOCHLORITE 0.125% 473 ML BOTTLE TP SCH (11:32)
[2018-08-23] MEDS: CADEXOMER IODINE 40 GM TUBE TOP SCH (11:33)
[2018-08-23] MEDS: THERAHONEY GEL 1.5 OZ TUBE TOP SCH (11:33)
[2018-08-23] MEDS: LIDOCAINE 5% PATCH TD SCH (11:35)
[2018-08-23 11:41] VITALS: BP 143/70
--- NOTE | 2018-08-23 13:00 | NUR ---
restart a new iv line on lfa #20 and continue ivpb aS ORDER
[2018-08-23] MEDS: SOD FERRIC GLUC COMPLX/SUCROSE 125 MG in IV NORMAL SALINE 100 ML IV SCH (14:52)
[2018-08-23 16:00] VITALS: BP 119/57
[2018-08-23] MEDS: POTASSIUM PHOSPHATE MM 7.5 MMOL in IV DEXTROSE 5% 100 ML IV SCH ×3 (16:12→22:00)
[2018-08-23] MEDS: TRAMADOL HCL 50 MG TABLET PO PRN (16:17)
[2018-08-23] MEDS: SIMVASTATIN 40 MG TABLET PO SCH (16:40)
[2018-08-23] MEDS: MONTELUKAST SODIUM 10 MG TABLET PO SCH (16:40)
[2018-08-23] MEDS: INSULIN REGULAR, HUMAN 300 UNIT/3 ML VIAL SQ PRN (16:42)
--- NOTE | 2018-08-23 17:30 | NUR ---
DR TEX JEAN WAS CALL AND INFORM OF PATIENT STILL ON IVPB KPO4 ,WILL FINISH LATE TONIGHT AND PATIENT REQUEST TO STAY TONIGHT AND GO HOME TOMORROW AND MESSAGE LEFT
--- NOTE | 2018-08-23 17:30 | NUR ---
STABLE HEMODYNAMIC STATUS ,PAIN UNDER CONTROL NO ACUTE DISTRESS SAFETY MEASURE PROVIDED CALL LIGHT IN REACH
[2018-08-23 20:00] VITALS: BP 129/66
[2018-08-24] MEDS: POTASSIUM PHOSPHATE MM 7.5 MMOL in IV DEXTROSE 5% 100 ML IV SCH (01:28)
[2018-08-24 04:00] VITALS: BP 132/52
[2018-08-24] MEDS: PANTOPRAZOLE SODIUM 40 MG TABLET.DR PO SCH (06:02)
[2018-08-24] MEDS: LEVOFLOXACIN 750 MG TABLET PO SCH (06:02)
[2018-08-24] MEDS: BLOOD SUGAR DIAGNOSTIC 1 EACH STRIP VI SCH ×2 (06:30→12:23)
[2018-08-24] MEDS: LEVOTHYROXINE SODIUM 25 MCG TABLET PO SCH (06:30)
--- NOTE | 2018-08-24 08:00 | NUR ---
AWAKE ALERT COOPERATE WELL NO PAIN OR SOB ON FALL AND ASPIRATION PRECAUTION KEEP CALL LIGHT IN REACH
[2018-08-24] MEDS: LACTOBACILLUS RHAMNOSUS GG 1 EACH CAPSULE PO SCH (08:21)
[2018-08-24] MEDS: predniSONE 20 MG TABLET PO SCH (08:21)
[2018-08-24] MEDS: EZETIMIBE 10 MG TABLET PO SCH (08:21)
[2018-08-24] MEDS: ZINC SULFATE 220 MG CAPSULE PO SCH (08:21)
[2018-08-24] MEDS: TRAMADOL HCL 50 MG TABLET PO PRN ×2 (08:22→14:17)
[2018-08-24] MEDS: MULTIVIT, IRON, MIN NO. 8, FA TABLET PO SCH (08:22)
[2018-08-24] MEDS: VALSARTAN 160 MG TABLET PO SCH (08:22)
[2018-08-24] MEDS: ASCORBIC ACID 500 MG TABLET PO SCH (08:22)
[2018-08-24] MEDS: DOCUSATE SODIUM 250 MG CAPSULE PO SCH (08:22)
[2018-08-24] MEDS: AMLODIPINE 5 MG TABLET PO SCH (08:22)
[2018-08-24] MEDS: PROTEIN SUPPLEMENT (PROSTAT) 30 ML LIQUID PO SCH (08:24)
[2018-08-24] MEDS: FLUTICASONE/VILANTEROL 1 EACH BLST.W.DEV INH SCH (08:25)
[2018-08-24] MEDS: LIDOCAINE 5% PATCH TD SCH (08:25)
[2018-08-24] MEDS: SODIUM HYPOCHLORITE 0.125% 473 ML BOTTLE TP SCH (09:14)
[2018-08-24] MEDS: CADEXOMER IODINE 40 GM TUBE TOP SCH (09:14)
[2018-08-24] MEDS: THERAHONEY GEL 1.5 OZ TUBE TOP SCH (09:15)
[2018-08-24 11:14] VITALS: BP 133/64
--- NOTE | 2018-08-24 12:00 | NUR ---
PT GIVEN BOOT AND INSTRUCTION HOW TO PUT ON FOR AMBULATION AND WOUND CARE DSG CHANGE AND INSTRUCTION HOW TO CHANGE DSG AND CLEAN WOUND ,VERBALIZES UNDERSTAND
[2018-08-24] MEDS: INSULIN REGULAR, HUMAN 300 UNIT/3 ML VIAL SQ PRN (12:25)
--- NOTE | 2018-08-24 14:00 | NUR ---
D/C INSTRUCTION REGARDING NEED TO F/U WITH OWN PMD AND DR CROWE AND CONTINUE HOME MEDICINE PRECRIPTION /ORDER EDUCATION PK GIVE AND SUPPLY FOR DSG CHANGE GIVEN HL WILL D/C PRIOR D/C HOME TODAY D/C SHEET SIGNS
[2018-08-24] MEDS: SOD FERRIC GLUC COMPLX/SUCROSE 125 MG in IV NORMAL SALINE 100 ML IV SCH (14:13)
[2018-08-24 15:17] VITALS: BP 111/57
--- NOTE | 2018-08-24 15:30 | NUR ---
LASHAWNY CAME AND EXPLAINES ALL HOME MEDICATION PRECRIPTION TO PATIENT AND SON ,VERBALIZES UNDERSTAND
--- NOTE | 2018-08-24 16:00 | NUR ---
D./C HOME WITH HER BELONGING ACCOMPANIES WITH SARAI CONDITION STABLE IV D/C
== END 2018-08-24 15:54 | disposition home or self-care (01) | DRG 853 ==
LOC: ER 18:03 → TELE 21:49 → CCU 08-18 01:37 → MED 08-19 13:00 → TELE 08-19 13:57 → MED 08-22 09:48
PROC: 30233N1 Transfusion of Nonautologous Red Blood Cells into Peripheral Vein, Percutaneous Approach (ICD-10-PCS; 2018-08-19)
PROC: 0JBQ0ZZ Excision of Right Foot Subcutaneous Tissue and Fascia, Open Approach (ICD-10-PCS; 2018-08-20)
PROC: 0DJD8ZZ Inspection of Lower Intestinal Tract, Via Natural or Artificial Opening Endoscopic (ICD-10-PCS; 2018-08-23)
PROC: 0DB98ZX Excision of Duodenum, Via Natural or Artificial Opening Endoscopic, Diagnostic (ICD-10-PCS; principal; 2018-08-23 09:29)
DX: A41.9 Sepsis, unspecified organism (principal); J18.9 Pneumonia, unspecified organism; R65.21 Severe sepsis with septic shock; N17.0 Acute kidney failure with tubular necrosis; G92 Toxic encephalopathy; J44.0 Chronic obstructive pulmonary disease with (acute) lower respiratory infection; L97.518 Non-pressure chronic ulcer of other part of right foot with other specified severity; J90 Pleural effusion, not elsewhere classified; L03.115 Cellulitis of right lower limb; L97.328 Non-pressure chronic ulcer of left ankle with other specified severity; I77.1 Stricture of artery; E11.51 Type 2 diabetes mellitus with diabetic peripheral angiopathy without gangrene; E03.9 Hypothyroidism, unspecified; Z79.84 Long term (current) use of oral hypoglycemic drugs; E11.42 Type 2 diabetes mellitus with diabetic polyneuropathy; K21.9 Gastro-esophageal reflux disease without esophagitis; I25.10 Atherosclerotic heart disease of native coronary artery without angina pectoris; Z95.1 Presence of aortocoronary bypass graft; K64.8 Other hemorrhoids; K64.4 Residual hemorrhoidal skin tags; M19.90 Unspecified osteoarthritis, unspecified site; M81.0 Age-related osteoporosis without current pathological fracture; E11.22 Type 2 diabetes mellitus with diabetic chronic kidney disease; N18.9 Chronic kidney disease, unspecified; K29.80 Duodenitis without bleeding; K29.70 Gastritis, unspecified, without bleeding; K44.9 Diaphragmatic hernia without obstruction or gangrene; M40.209 Unspecified kyphosis, site unspecified; I13.10 Hypertensive heart and chronic kidney disease without heart failure, with stage 1 through stage 4 chronic kidney disease, or unspecified chronic kidney disease; G89.29 Other chronic pain; E78.00 Pure hypercholesterolemia, unspecified; E11.621 Type 2 diabetes mellitus with foot ulcer; Z86.010 Personal history of colon polyps; E83.39 Other disorders of phosphorus metabolism
CPT/HCPCS: 36415; 36600; 70030-TC; 71045; 73630; 83550; 83605; 83735; 84100; 84443; 85018; 85025; 85651; 85730; 86850; 86900; 86901; 86920; 87040; 87070; 87077; 87086; 88342; 93005; 97110; 97530; A4217; A4663; A9150; C1758; C9113; G0378; J0456; J0692; J0696; J1815; J1956; J2270; J2405; J2916; J3370; J3475; J3490; J7030; J7050; J7060; J7512; P9016-BL; P9021

== ENCOUNTER 2022-08-24 10:36 | Inpatient (IN) | payer MEDICARE, OTHER ==
[~2022-08-24] VITALS: Ht 162.6 cm; Wt 69.9 kg
[~2022-08-24 10:36] MED LIST changes: -CALC-261 PO; -EZET10TA13 PO; +EZET10TA15 PO; +FERR325T28 PO; -HYDR12.55 PO; +LEVO750T21 PO; -LINA5TAB PO; +SIMV40TA2 PO; -SIMV40TA5 PO; +VALS160T2 PO
[2022-08-24] MEDS ORDERED: IV NORMAL SALINE 1000 ML BAG IV ONE ×2 (11:45→16:15)
[2022-08-24] MEDS ORDERED: ONDANSETRON 4 MG/2 ML VIAL IV ONE (11:45)
[2022-08-24 12:13] LABS: HEMATOCRIT 36.8 % (31.2-41.9); MEAN CORPUSCULAR VOLUME 91.6 fL (75.5-95.3); PLATELET COUNT (AUTO) 192 K/uL (179-408)
[2022-08-24 12:29] LABS: ALANINE AMINOTRANSFERASE 47 U/L (14-59); ALKALINE PHOSPHATASE 98 U/L (50-136); ASPARTATE AMINOTRANSFERASE 47 U/L (15-37); BILIRUBIN,DIRECT 0.2 mg/dL (0.0-0.2); BILIRUBIN,TOTAL 0.4 mg/dL (0.2-1.0); CARBON DIOXIDE 26 mmol/L (21-32); CHLORIDE 102 mmol/L (98-107); CREATININE 3.6 mg/dL (0.6-1.3); GLUCOSE 102 mg/dL (74-106); LIPASE 96 U/L (73-393); POTASSIUM 4.4 mmol/L (3.5-5.1); TOTAL PROTEIN, SERUM 5.9 g/dL (6.4-8.2); UREA NITROGEN, BLOOD 14 mg/dL (7-18)
[2022-08-24] MEDS ORDERED: ONDANSETRON 4 MG/2 ML VIAL ONE (12:31)
[2022-08-24] MEDS ORDERED: CEFEPIME HCL 1 G in IV DEXTROSE 5% 50 ML IV ONE (14:30)
[2022-08-24] MEDS ORDERED: VANCOMYCIN IV 1,000 MG in IV DEXTROSE 5% 250 ML IV ONE (14:30)
--- NOTE | 2022-08-24 15:20 | NUR ---
recieved critical lab lactic reflex 2.5, endorsed to registry nurse.
[2022-08-24 16:30] LABS: *BILIRUBIN,URIN 1+ (NEGATIVE); *BLOOD, URINE 1+ (NEGATIVE); *CLARITY,URINE CLEAR (CLEAR); *COLOR,URINE YELLOW (YELLOW); *KETONES,URINE TRACE (NEGATIVE); *UROBILINOGEN,URINE 0.2 E.U./dl (NORMAL); LEUKOCYTE ESTERASE ,URINE NEGATIVE (NEGATIVE); NITRITE, URINE NEGATIVE (NEGATIVE); UGLUCOSE NEGATIVE (NEGATIVE)
--- NOTE | 2022-08-24 18:23 | NUR ---
Patient [facility] ED with C/O nausea, LUQ sharp, persistent, abdominal pain X 3 days. Patient denies fevers/chills/chest pain. Patient appears confused and as per the son who came after, this is not the patient's baseline. Patient seen by the ER MD. 22G angio-cath inserted to (RT) hand and blood collected and sent. Patient medicated as per orders (see eMAR). All ordered diagnostic test completed as ordered. Patient's angio-cath dislodged and (LT) upper arm 18G midline placed by the PICC nurse. Patient is admitted, stable on the monitor, stretcher in the lowest position, call duque within reach and son at the bedside awaiting assigned bed. Bedside report given to Vicki EWING on-coming nurse.
[2022-08-24] MEDS ORDERED: DEXTROSE 50% 50 ML DISP.SYRIN IV PRN (19:00)
[2022-08-24] MEDS ORDERED: INSULIN REGULAR, HUMAN 300 UNITS/3 ML VIAL SQ PRN (19:00)
[2022-08-24] MEDS ORDERED: REMEDY ESSENTIAL ZINC PASTE 113 GM TP PRN (19:00)
[2022-08-24] MEDS ORDERED: INSULIN REGULAR, HUMAN 300 UNIT/3 ML VIAL SQ PRN (19:00)
[2022-08-24] MEDS ORDERED: MAGNESIUM HYDROXIDE 30 ML LIQUID UDC PO PRN (19:00)
[2022-08-24] MEDS: BLOOD SUGAR DIAGNOSTIC 1 EACH STRIP VI SCH (21:00)
[2022-08-24 21:38] LABS: WBC,URINE 0-3 /HPF (0-3)
[2022-08-24 21:39] LABS: BACTERIA,URINE RARE /HPF (NONE SEEN); MUCUS,URINE MANY /LPF (0-FEW); SQUAMOUS EPITHELIAL CELL,UR FEW /HPF (NONE SEEN)
[2022-08-24 23:00] VITALS: BP 119/49
[2022-08-25 04:00] VITALS: BP 101/74
[2022-08-25] MEDS: ACETAMINOPHEN 325 MG TABLET PO PRN ×2 (04:44→22:07)
[2022-08-25 06:01] LABS: HEMATOCRIT 29.6 % (31.2-41.9); MEAN CORPUSCULAR HEMOGLOBIN 31.2 uug (24.7-32.8); MEAN CORPUSCULAR VOLUME 90.9 fL (75.5-95.3); PLATELET COUNT (AUTO) 168 K/uL (179-408)
[2022-08-25 06:20] LABS: CARBON DIOXIDE 21 mmol/L (21-32); CHLORIDE 108 mmol/L (98-107); CREATININE 2.5 mg/dL (0.6-1.3); GLUCOSE 89 mg/dL (74-106); MAGNESIUM 1.8 mg/dL (1.8-2.4); PHOSPHOROUS 2.8 mg/dL (2.5-4.9); POTASSIUM 4.2 mmol/L (3.5-5.1); UREA NITROGEN, BLOOD 16 mg/dL (7-18)
[2022-08-25] MEDS: BLOOD SUGAR DIAGNOSTIC 1 EACH STRIP VI SCH ×4 (07:50→21:01)
--- NOTE | 2022-08-25 09:00 | NUR ---
DR LOPES HERE AND SEEN PATIENT WITH NB O NEW ORDERS AT THIS TIME.
[2022-08-25] MEDS: CEFEPIME HCL 1 G in IV DEXTROSE 5% 50 ML IV SCH ×2 (10:02→21:00)
[2022-08-25 12:14] VITALS: BP 130/100
[2022-08-25] MEDS ORDERED: LEVO75TA7 PO (13:36)
[2022-08-25] MEDS ORDERED: FURO40TA5 PO (13:47)
[2022-08-25] MEDS ORDERED: DICL100G26 TP (13:47)
[2022-08-25] MEDS ORDERED: LOSA100T31 PO (13:47)
[2022-08-25] MEDS ORDERED: TRAZ-257 PO (13:47)
[2022-08-25] MEDS ORDERED: CYAN-10 IM (13:47)
[2022-08-25] MEDS ORDERED: COLC0.6C3 PO (13:47)
[2022-08-25] MEDS ORDERED: FEXO-65 PO (13:47)
[2022-08-25] MEDS ORDERED: TRAM50TA2 PO (13:47)
[2022-08-25] MEDS ORDERED: FLUT1BLS IH (13:47)
[2022-08-25] MEDS ORDERED: ERGO500040 PO (13:47)
[2022-08-25] MEDS ORDERED: CELE200C PO (13:47)
[2022-08-25] MEDS ORDERED: ASPI81TA31 PO (13:47)
[2022-08-25] MEDS ORDERED: APIX2.5T PO (13:47)
[2022-08-25] MEDS ORDERED: IPRA3AMP23 NEB (13:47)
[2022-08-25] MEDS ORDERED: ESOM40CA PO (13:47)
[2022-08-25] MEDS ORDERED: METH-817 PO (13:56)
[2022-08-25] MEDS ORDERED: FAMO-132 PO (13:56)
[2022-08-25] MEDS ORDERED: EVOL140P3 SQ (13:56)
[2022-08-25] MEDS ORDERED: PRED10TA PO (14:00)
[2022-08-25] MEDS ORDERED: TRAZ-182 PO (14:02)
[2022-08-25] MEDS: IV NS 1000 ML 1,000 ML IV PRN (14:13)
[2022-08-25] MEDS: LEVOTHYROXINE SODIUM 75 MCG TABLET PO SCH (14:56)
--- NOTE | 2022-08-25 15:00 | NUR ---
GRAND DAUGHTER AT THE BEDSIDE ASSISTING WITH HER MEALS DENIES PAIN OR DISCOMFORTS RESTING WELL IVF ORDERED.NO N/V AT THIS TIME
[2022-08-25 16:55] VITALS: BP 98/51
[2022-08-25] MEDS: MONTELUKAST SODIUM 10 MG TABLET PO SCH (17:39)
[2022-08-25 20:00] VITALS: BP 110/55
[2022-08-26 04:00] VITALS: BP 129/82
[2022-08-26] MEDS: PANTOPRAZOLE SODIUM 40 MG TABLET.DR PO SCH (06:46)
[2022-08-26] MEDS: LEVOTHYROXINE SODIUM 75 MCG TABLET PO SCH (06:46)
[2022-08-26] MEDS: BLOOD SUGAR DIAGNOSTIC 1 EACH STRIP VI SCH ×3 (07:02→18:00)
--- NOTE | 2022-08-26 07:56 | NUR ---
PATIENT IS IN BED WITH EYES CLOSED BUT IS EASILY AROUSABLE ON ROUNDS.ON ROOM AIR WITH NO SHORTNESS OF BREATH AT THIS TIME IVF WITH NS IS IN PROGRESS WITH NO S/S OF INFILTERATION ON SITE.CALL LIGHT AND PERSONAL BELONGINGS ARE WITHIN EASY REACH AT THIS TIME WILL CONTINUE TO OBSERVE.
[2022-08-26] MEDS: CEFEPIME HCL 1 G in IV DEXTROSE 5% 50 ML IV SCH ×2 (09:36→22:06)
[2022-08-26 12:47] VITALS: BP 109/75
--- NOTE | 2022-08-26 15:48 | NUR ---
NOTED RIGHT ARM SWOLLEN ELEVATED ON THE PILLOW MD NOTIFIED WITH NEW ORDER FOR ULTRA SOUND OF THE RIGHT UPPER EXT AND NOTED.
[2022-08-26 16:45] VITALS: BP 142/67
[2022-08-26] MEDS: MONTELUKAST SODIUM 10 MG TABLET PO SCH (18:00)
[2022-08-26] MEDS: ONDANSETRON 4 MG/2 ML VIAL IV PRN (18:20)
--- NOTE | 2022-08-26 18:20 | NUR ---
C/O FEELS NAUSEOUS BUT DID NOT VOMIT MEDICATED WITH ZOFRAN ORDERED FAMILY AT THE BEDSIDE AT THIS TIME.
[2022-08-26] MEDS: IV NS 1000 ML 1,000 ML IV PRN (18:24)
--- NOTE | 2022-08-26 18:37 | NUR ---
ULTRA SOUND OF THE RIGHT UPPER EXT COMPLETED ORDERED AND RESULT IS NEGATIVE FOR THROMBOSIS.
[2022-08-26] MEDS: REMEDY ESSENTIAL ZINC PASTE 113 GM TP SCH (21:00)
[2022-08-26 21:20] VITALS: BP 143/60
[2022-08-27 04:22] VITALS: BP 108/53
[2022-08-27] MEDS: LEVOTHYROXINE SODIUM 75 MCG TABLET PO SCH (05:55)
[2022-08-27] MEDS: PANTOPRAZOLE SODIUM 40 MG TABLET.DR PO SCH (05:55)
[2022-08-27 07:25] LABS: BILIRUBIN,TOTAL 0.6 mg/dL (0.2-1.0); CREATININE 0.9 mg/dL (0.6-1.3)
--- NOTE | 2022-08-27 07:29 | NUR ---
RECEIVED IN BED SLEEPING EASILY AROUSABLE ON ROUNDS ON O2 AT 2L/M BY NASAL CANULA WITH NO SHORTNESS OF BREATH HOB UP IVF IN PROGRESS ORDERED CALL LIGHTS AND PERSONAL BELONGINGS ARE WITHIN EASY REACH MADE COMFORTABLE WILL CONTINUE TO OBSERVE.
[2022-08-27] MEDS: IV NS 1000 ML 1,000 ML IV PRN ×2 (08:05→21:28)
[2022-08-27] MEDS: REMEDY ESSENTIAL ZINC PASTE 113 GM TP SCH ×2 (08:06→21:35)
[2022-08-27] MEDS: PROTEIN SUPPLEMENT (PROSTAT) 30 ML LIQUID PO SCH (08:45)
[2022-08-27 09:56] LABS: THYROID STIMULATING HORMONE 1.959 mIU/mL (0.358-3.740)
[2022-08-27] MEDS: CEFEPIME HCL 1 G in IV DEXTROSE 5% 50 ML IV SCH ×2 (09:59→21:28)
[2022-08-27 11:55] VITALS: BP 127/60
--- NOTE | 2022-08-27 12:30 | NUR ---
TEMP IS 99.3 AND HR IS 132 DR LITTLE NOTIFIED ALSO DR MARITZA HARE WAS HERE AND NOTIFIED ABOUT THE LOW GRADE TEMP OF 99.3 WITH NO NEW ORDERS.
[2022-08-27] MEDS: ONDANSETRON 4 MG/2 ML VIAL IV PRN (12:39)
--- NOTE | 2022-08-27 12:40 | NUR ---
PATIENT STILL C/O NAUSEA MEDICATED WITH ZOFRAN ORDERED APPETITE IS POOR REFUSING TO EAT BUT REMAINS ON IVF ORDERED.
--- NOTE | 2022-08-27 12:46 | NUR ---
DR LITTLE RETURNED CALL WITH NEW ORDERS AND NOTED.
[2022-08-27] MEDS: ACETAMINOPHEN 325 MG TABLET PO PRN (13:55)
--- NOTE | 2022-08-27 13:55 | NUR ---
MEDICATED WITH TYLENOL FOR GENERAL ACHES PATIENT SEEMS TO BE UNCOMFORTABLE REPOSITIONED FOR COMFORT MADE COMFORTABLE WILL CONTINUE TO OBSERVE.
--- NOTE | 2022-08-27 14:50 | NUR ---
REMAIN INCONTINENT STRAIGHT CATH FOR URINE SPECIMEN ORDERED.
[2022-08-27 15:16] LABS: *BILIRUBIN,URIN NEGATIVE (NEGATIVE); *BLOOD, URINE 2+ (NEGATIVE); *CLARITY,URINE CLEAR (CLEAR); *COLOR,URINE YELLOW (YELLOW); *KETONES,URINE 4+ (NEGATIVE); *UROBILINOGEN,URINE 0.2 E.U./dl (NORMAL); LEUKOCYTE ESTERASE ,URINE NEGATIVE (NEGATIVE); NITRITE, URINE NEGATIVE (NEGATIVE); PH,URINE 5.5 (5.0-8.0); UGLUCOSE NEGATIVE (NEGATIVE)
[2022-08-27 15:23] LABS: *CREATININE,URINE 50.8 mg/dL (30-125); *URINE TOTAL PROTEIN RANDOM 42.4 mg/dL (<150/24HR)
[2022-08-27 15:58] VITALS: BP 93/44
[2022-08-27] MEDS: MONTELUKAST SODIUM 10 MG TABLET PO SCH (17:00)
--- NOTE | 2022-08-27 17:54 | NUR ---
DR LITTLE HERE SEEN PATIENT AND UPDATED PATIENTS GRAND DAUGHTER WHO IS AT THE BEDSIDE AT THIS TIME.
[2022-08-27 20:00] VITALS: BP 106/63
[2022-08-27 20:22] LABS: BACTERIA,URINE NONE SEEN /HPF (NONE SEEN); RBC,URINE 20-50 /HPF (0-3); WBC,URINE 0-3 /HPF (0-3)
[2022-08-27 20:23] LABS: SQUAMOUS EPITHELIAL CELL,UR MANY /HPF (NONE SEEN); YEAST,URINE BUDDING YEAST /HPF (NONE SEEN)
[2022-08-28] VITALS: BP 110/58
[2022-08-28] MEDS: ONDANSETRON 4 MG/2 ML VIAL IV PRN ×2 (00:50→12:30)
--- NOTE | 2022-08-28 01:14 | NUR ---
2199-md plazaardiologists called re pt hr 88-124 ,bp 106/63 ,t98.3 o2 97%.pt has no c/o chest pain or discomfort awaiting a reply from dr kramer 0138-pt c/o nausea meds given for same with good effect .
[2022-08-28 04:00] VITALS: BP 138/69
[2022-08-28] MEDS: LEVOTHYROXINE SODIUM 75 MCG TABLET PO SCH (05:51)
[2022-08-28] MEDS: PANTOPRAZOLE SODIUM 40 MG TABLET.DR PO SCH (05:51)
--- NOTE | 2022-08-28 07:30 | NUR ---
RECEIVED PATIENT IN BED AWAKE ALERT COOPERATIVE WITH NO S/S OF PAIN OR DISCOMFORTS AT THIS TIME.REMAIN ON O2 AT 2L/M BY NASAL CANULA WITH NO SOB.IVF IN PROGRESS WITH NO S/S OF INFILTERATION AT THIS TIME ASSISTED WITH REPOSITIONING RIGHT BELOW KNEE AMPUTEE ELEVATED ON THE PILLOW FOR COMFORT.WILL CONTINUE TO OBSERVE.
[2022-08-28] MEDS: REMEDY ESSENTIAL ZINC PASTE 113 GM TP SCH ×2 (08:24→20:45)
[2022-08-28] MEDS: PROTEIN SUPPLEMENT (PROSTAT) 30 ML LIQUID PO SCH (08:24)
[2022-08-28 09:00] LABS: MEAN CORPUSCULAR VOLUME 89.8 fL (75.5-95.3); PLATELET COUNT (AUTO) 209 K/uL (179-408)
[2022-08-28 09:07] LABS: CREATININE 0.8 mg/dL (0.6-1.3); POTASSIUM 4.1 mmol/L (3.5-5.1)
[2022-08-28 09:13] LABS: BILIRUBIN,TOTAL 0.5 mg/dL (0.2-1.0); NEUTROPHILS % (MANUAL) 0 % (42-75); PHOSPHOROUS 1.5 mg/dL (2.5-4.9); TOTAL PROTEIN, SERUM 4.9 g/dL (6.4-8.2)
[2022-08-28 09:19] LABS: MAGNESIUM 1.1 mg/dL (1.8-2.4)
--- NOTE | 2022-08-28 09:20 | NUR ---
RECEIVED CALL FROM THE LAB MAG IS 1.[address] LITTLE WITH NO ORDERS AT THIS TIME.
--- NOTE | 2022-08-28 09:40 | NUR ---
NEW ORDERS FOR CT ABD/PELVIS WITH CONTRAST AND CTA ANGIO/CHEST NOTED FROM DR HUNTLEY CALLED PATIENTS SON SARAH BOOTHE AND GOT A TELEPHONE CONSCENT FROM HIM WITHNESSED BY ANOTHER NURSE.
[2022-08-28] MEDS: CEFEPIME HCL 1 G in IV DEXTROSE 5% 50 ML IV SCH (09:46)
[2022-08-28] MEDS: MAGNESIUM SULFATE/D5W 100 ML IV SCH ×2 (10:22→11:30)
[2022-08-28 11:14] VITALS: BP 126/61
[2022-08-28] MEDS ORDERED: IV NORMAL SALINE 250 ML IV ONE (12:32)
[2022-08-28] MEDS ORDERED: SWABABLE VALVE TRANSFER SET EA MC ONE (12:32)
[2022-08-28] MEDS ORDERED: IOHEXOL 300MG/ML 100 ML INFUS..BTL ONE (12:32)
[2022-08-28] MEDS: IV NS 1000 ML 1,000 ML IV PRN (12:51)
--- NOTE | 2022-08-28 13:15 | NUR ---
PATIENT PICKED UP BY BED TO RADIOLOGY FOR CT ABD/PELVIS WITH IV CONTRAST PLUS CTA ANGIO ORDERED
--- NOTE | 2022-08-28 13:25 | NUR ---
DR MARITZA HARE HERE AND SEEN PATIENT WITH ORDER TO DISCONTINUE THE ATB AND NOTED.
[2022-08-28] MEDS: ACETAMINOPHEN 325 MG TABLET PO PRN ×2 (14:53→20:43)
[2022-08-28 15:24] VITALS: BP 149/74
--- NOTE | 2022-08-28 16:30 | NUR ---
DR HUNTLEY HERE SPOKE WITH PATIENTS SON SARAH BUT SARAH PREFERS FOR DR LITTLE TO GIVE THE UPDATE TO HIS DAUGHTER ROSY.
[2022-08-28] MEDS ORDERED: SODIUM PHOSPHATE MM 15 MMOL in IV NORMAL SALINE 250 ML IV ONE (17:00)
[2022-08-28] MEDS: MONTELUKAST SODIUM 10 MG TABLET PO SCH (17:11)
[2022-08-28] MEDS ORDERED: ALBUTEROL SULFATE 1.25 MG/3 ML NEBU NEB PRN (17:30)
[2022-08-28] MEDS ORDERED: levoFLOXacin 500 MG/D5W 500 MG in PREMIXED 1 EACH IV SCH (17:30)
[2022-08-28] MEDS ORDERED: FLUCONAZOLE 200 MG/NS 100ML IV 100 MG in PREMIXED 1 EACH IV SCH (18:00)
--- NOTE | 2022-08-28 18:00 | NUR ---
RESULT OF CT ABD AND PELVIS AND CTA ANGIO RELAYED TO DR HUNTLEY WITH NEW ORDERS.
[2022-08-28 20:00] VITALS: BP 96/55
[2022-08-28] MEDS: METOPROLOL TARTRATE 25 MG TABLET PO SCH (20:00)
[2022-08-28] MEDS: VANCOMYCIN FOR PO/GT/NG USE PO SCH (20:35)
[2022-08-28] MEDS: FLUCONAZOLE 200 MG/NS 100ML IV 100 MG in PREMIXED 1 EACH IV SCH (20:43)
[2022-08-28] MEDS: IV D5/ 0.9% NACL 1,000 ML IV PRN (20:52)
[2022-08-28] MEDS ORDERED: DOXYCYCLINE HYCLATE IV 100 MG in IV DEXTROSE 5% 100 ML IV SCH (21:00)
[2022-08-28] MEDS: MEROPENEM 1 G in IV NORMAL SALINE 100 ML IV SCH (21:08)
[2022-08-28] MEDS ORDERED: METRONIDAZOLE 500 MG/NS 100ML 500 MG in PREMIXED 1 EACH IV SCH (22:00)
[2022-08-29] VITALS: BP 95/55
[2022-08-29] MEDS: VANCOMYCIN FOR PO/GT/NG USE PO SCH ×4 (03:15→20:07)
[2022-08-29 04:00] VITALS: BP 125/64
[2022-08-29] MEDS: PANTOPRAZOLE SODIUM 40 MG TABLET.DR PO SCH (06:12)
[2022-08-29] MEDS: LEVOTHYROXINE SODIUM 75 MCG TABLET PO SCH (06:12)
[2022-08-29] MEDS: MEROPENEM 1 G in IV NORMAL SALINE 100 ML IV SCH ×3 (06:14→21:01)
[2022-08-29 06:35] LABS: HEMATOCRIT 31.4 % (31.2-41.9); MEAN CORPUSCULAR HEMOGLOBIN 30.4 uug (24.7-32.8); MEAN CORPUSCULAR VOLUME 87.7 fL (75.5-95.3); PLATELET COUNT (AUTO) 228 K/uL (179-408)
[2022-08-29 06:54] LABS: CARBON DIOXIDE 21 mmol/L (21-32); CHLORIDE 102 mmol/L (98-107); CREATININE 0.9 mg/dL (0.6-1.3); GLUCOSE 100 mg/dL (74-106); MAGNESIUM 1.3 mg/dL (1.8-2.4); PHOSPHOROUS 1.8 mg/dL (2.5-4.9); POTASSIUM 3.4 mmol/L (3.5-5.1); UREA NITROGEN, BLOOD 3 mg/dL (7-18)
[2022-08-29] MEDS: METOPROLOL TARTRATE 25 MG TABLET PO SCH ×2 (08:30→20:15)
[2022-08-29] MEDS: REMEDY ESSENTIAL ZINC PASTE 113 GM TP SCH ×2 (08:30→20:20)
[2022-08-29] MEDS: MAGNESIUM SULFATE/D5W 100 ML IV SCH ×2 (08:30→09:20)
[2022-08-29] MEDS ORDERED: POTASSIUM PHOSPHATE MM 15 MMOL in IV NORMAL SALINE 250 ML IV ONE (10:00)
[2022-08-29 11:18] VITALS: BP 112/62
[2022-08-29 16:02] VITALS: BP 143/74
[2022-08-29] MEDS: ACETAMINOPHEN 325 MG TABLET PO PRN ×2 (17:28→20:18)
[2022-08-29] MEDS: MONTELUKAST SODIUM 10 MG TABLET PO SCH (17:28)
[2022-08-29] MEDS ORDERED: METOCLOPRAMIDE HCL 10 MG/2 ML VIAL IV ONE (18:30)
[2022-08-29] MEDS: FLUCONAZOLE 200 MG/NS 100ML IV 100 MG in PREMIXED 1 EACH IV SCH (20:07)
[2022-08-30] MEDS: VANCOMYCIN FOR PO/GT/NG USE PO SCH ×4 (01:48→20:34)
[2022-08-30] MEDS: MEROPENEM 1 G in IV NORMAL SALINE 100 ML IV SCH (05:51)
[2022-08-30] MEDS: LEVOTHYROXINE SODIUM 75 MCG TABLET PO SCH (05:52)
[2022-08-30] MEDS: PANTOPRAZOLE SODIUM 40 MG TABLET.DR PO SCH (05:52)
[2022-08-30 07:41] LABS: HEMATOCRIT 32.1 % (31.2-41.9); MEAN CORPUSCULAR HEMOGLOBIN 30.4 uug (24.7-32.8); PLATELET COUNT (AUTO) 271 K/uL (179-408)
[2022-08-30] MEDS: METOPROLOL TARTRATE 25 MG TABLET PO SCH ×2 (07:59→20:34)
[2022-08-30] MEDS: REMEDY ESSENTIAL ZINC PASTE 113 GM TP SCH ×2 (07:59→20:38)
[2022-08-30 08:08] LABS: ALANINE AMINOTRANSFERASE 61 U/L (14-59); ALKALINE PHOSPHATASE 162 U/L (50-136); ASPARTATE AMINOTRANSFERASE 107 U/L (15-37); BILIRUBIN,TOTAL 0.5 mg/dL (0.2-1.0); CARBON DIOXIDE 23 mmol/L (21-32); CHLORIDE 104 mmol/L (98-107); CREATININE 0.8 mg/dL (0.6-1.3); GLUCOSE 119 mg/dL (74-106); MAGNESIUM 1.4 mg/dL (1.8-2.4); PHOSPHOROUS 1.8 mg/dL (2.5-4.9); POTASSIUM 4.2 mmol/L (3.5-5.1); TOTAL PROTEIN, SERUM 4.8 g/dL (6.4-8.2); UREA NITROGEN, BLOOD 4 mg/dL (7-18)
[2022-08-30] MEDS ORDERED: METOCLOPRAMIDE HCL 10 MG/2 ML VIAL IV ONE (08:26)
[2022-08-30] MEDS ORDERED: FUROSEMIDE 20 MG/2 ML VIAL IV ONE (08:30)
[2022-08-30] MEDS: MAGNESIUM SULFATE/D5W 100 ML IV SCH ×2 (09:14→09:17)
[2022-08-30] MEDS ORDERED: POTASSIUM PHOSPHATE MM 15 MMOL in IV NORMAL SALINE 250 ML IV ONE (10:00)
[2022-08-30 11:34] VITALS: BP 123/72
[2022-08-30 15:05] VITALS: BP 103/67
[2022-08-30] MEDS: ACETAMINOPHEN 325 MG TABLET PO PRN ×2 (17:06→20:39)
[2022-08-30] MEDS: IV D5/ 0.9% NACL 1,000 ML IV PRN (17:08)
[2022-08-30] MEDS: MONTELUKAST SODIUM 10 MG TABLET PO SCH (17:37)
[2022-08-30 20:13] VITALS: BP 90/54
[2022-08-31 00:11] VITALS: BP 90/49
[2022-08-31] MEDS: VANCOMYCIN FOR PO/GT/NG USE PO SCH ×3 (01:49→13:32)
[2022-08-31] MEDS: IV D5/ 0.9% NACL 1,000 ML IV PRN (01:50)
[2022-08-31 04:52] VITALS: BP 139/64
[2022-08-31] MEDS: PANTOPRAZOLE SODIUM 40 MG TABLET.DR PO SCH (06:42)
[2022-08-31] MEDS: LEVOTHYROXINE SODIUM 75 MCG TABLET PO SCH (06:42)
--- NOTE | 2022-08-31 07:45 | NUR ---
RECEIVED PATIENT IN BED ASLEEP BUT IS EASILY AROUSABLE ON ROUNDS SHE IS ALERT VERBALLY RESPOND BUT WITH DISORIENTATION AND FORGETFULNESS ALL NEEDS ANTICIPATED AND SATISFIED MAX ASSIST FOR ALL ADL TURNED AND REPOSITIONED Q2H FOR COMFORT SHE IS ON ROOM AIR WITH NO SOB AT THIS TIME IVF IN PROGRESS VIA MIDLINE LEFT FOREARM WITH NO S/S OF INFILTERATION ON SITE MADE COMFORTABLE WILL CONTINUE TO OBSERVE.
[2022-08-31 08:42] VITALS: BP 108/64
[2022-08-31] MEDS: ACETAMINOPHEN 325 MG TABLET PO PRN (08:42)
[2022-08-31] MEDS: METOPROLOL TARTRATE 25 MG TABLET PO SCH (08:42)
[2022-08-31] MEDS: REMEDY ESSENTIAL ZINC PASTE 113 GM TP SCH (08:43)
[2022-08-31 09:33] LABS: MEAN CORPUSCULAR VOLUME 89.5 fL (75.5-95.3); PLATELET COUNT (AUTO) 332 K/uL (179-408)
[2022-08-31 09:53] LABS: BILIRUBIN,TOTAL 0.4 mg/dL (0.2-1.0); CREATININE 0.8 mg/dL (0.6-1.3); MAGNESIUM 1.4 mg/dL (1.8-2.4); PHOSPHOROUS 2.6 mg/dL (2.5-4.9); TOTAL PROTEIN, SERUM 4.7 g/dL (6.4-8.2)
--- NOTE | 2022-08-31 11:21 | NUR ---
MAGNESSIUM LEVEL IS 1.4 MD AWARE WITH NEW ORDERS FOR REPLACEMENTS AND NOTED.
[2022-08-31] MEDS: MAGNESIUM SULFATE/D5W 100 ML IV SCH ×2 (11:29→12:44)
--- NOTE | 2022-08-31 14:00 | NUR ---
PATIENT SEEN AND EXAMINED BY DR ANABEL HUNTLEY WITH ORDER TO DISCHARGE PATIENT FROM M/S/TELE AND CONVERT TO ACUTE REHAB AND NOTED
[2022-08-31] MEDS ORDERED: ACET325T53 PO (14:17)
[2022-08-31] MEDS ORDERED: METO25TA6 PO (14:17)
[2022-08-31] MEDS ORDERED: FURO-152 PO (14:17)
[2022-08-31] MEDS ORDERED: PANT40TA49 PO (14:17)
[2022-08-31] MEDS ORDERED: ONDA4VIA23 IV (14:17)
[2022-08-31] MEDS ORDERED: VANC500V PO (14:17)
[2022-08-31] MEDS ORDERED: MENT113O TP (14:17)
[2022-08-31] MEDS ORDERED: TRAZ-182 PO (14:17)
[2022-08-31] MEDS ORDERED: ALBU1.25 NEB (14:17)
--- NOTE | 2022-08-31 14:54 | NUR ---
DR LUIZ GALLAGHER INFECTIOUS DISEASE HERE SEEN PATIENT WITH NEW ORDERS AND NOTED.
--- NOTE | 2022-08-31 15:00 | NUR ---
DISCHARGED FROM [facility] SURGE TELE AND TRANSFERED TO ACUTE REHAB ORDERED
== END 2022-08-31 15:15 | DRG 871 ==
LOC: ER 10:57 → MEDSURG3 22:10 → TELE3 08-27 13:49
PROVIDERS: ADMIT Internal Medicine; ATTEND Internal Medicine
PROC: 05H633Z Insertion of Infusion Device into Left Subclavian Vein, Percutaneous Approach (ICD-10-PCS; principal; 2022-08-24)
PROC: B547ZZA Ultrasonography of Left Subclavian Vein, Guidance (ICD-10-PCS; 2022-08-24)
DX: A41.9 Sepsis, unspecified organism (principal); E43 Unspecified severe protein-calorie malnutrition; G92.8 Other toxic encephalopathy; N17.0 Acute kidney failure with tubular necrosis; J69.0 Pneumonitis due to inhalation of food and vomit; I50.31 Acute diastolic (congestive) heart failure; E87.1 Hypo-osmolality and hyponatremia; E87.20 Acidosis, unspecified; D68.69 Other thrombophilia; I13.0 Hypertensive heart and chronic kidney disease with heart failure and stage 1 through stage 4 chronic kidney disease, or unspecified chronic kidney disease; B97.89 Other viral agents as the cause of diseases classified elsewhere; B35.1 Tinea unguium; E03.9 Hypothyroidism, unspecified; J44.9 Chronic obstructive pulmonary disease, unspecified; Z79.84 Long term (current) use of oral hypoglycemic drugs; K21.9 Gastro-esophageal reflux disease without esophagitis; Z89.511 Acquired absence of right leg below knee; Z90.49 Acquired absence of other specified parts of digestive tract; E78.5 Hyperlipidemia, unspecified; Z20.822 Contact with and (suspected) exposure to COVID-19; N18.9 Chronic kidney disease, unspecified; Z74.09 Other reduced mobility; M19.90 Unspecified osteoarthritis, unspecified site; M81.0 Age-related osteoporosis without current pathological fracture; D64.9 Anemia, unspecified; J45.909 Unspecified asthma, uncomplicated; A08.4 Viral intestinal infection, unspecified; E11.51 Type 2 diabetes mellitus with diabetic peripheral angiopathy without gangrene; E11.22 Type 2 diabetes mellitus with diabetic chronic kidney disease; M40.209 Unspecified kyphosis, site unspecified; Z79.890 Hormone replacement therapy
CPT/HCPCS: 36415; 70030-TC; 71045; 71275; 82378; 83550; 83605; 83690; 83735; 84100; 84156; 84300; 84443; 84484; 85025; 87040; 87086; 87400; 93005; 93307; A4663; C1758; G0378; J0692; J1450; J1815; J1940; J2185; J2405; J2765; J3370; J3475; J3490; J7040; J7042; J7050; Q9967

== ENCOUNTER 2022-08-31 15:19 | Inpatient (IN) | payer MEDICARE, OTHER ==
[~2022-08-31] VITALS: Ht 162.6 cm; Wt 69.9 kg
[~2022-08-31 15:19] MED LIST changes: +ACET325T53 PO; +ALBU1.25 NEB; +APIX2.5T PO; +ASPI81TA31 PO; +CELE200C PO; +COLC0.6C3 PO; +CYAN-10 IM; +DICL100G26 TP; +ERGO500040 PO; +EVOL140P3 SQ; +FAMO-132 PO; -FERR325T28 PO; +FEXO-65 PO; +FLUT1BLS IH; -FLUT200B IH; +FURO-152 PO; +FURO40TA5 PO; +IPRA3AMP23 NEB; -LEVO25TA9 PO; -LEVO750T21 PO; +LEVO75TA7 PO; +LOSA100T31 PO; +MENT113O TP; -METF-440 PO; +METH-817 PO; +METO25TA6 PO; +ONDA4VIA23 IV; +PANT40TA49 PO; +PRED10TA PO; -PRED20TA PO; +TRAM50TA2 PO; +TRAZ-182 PO; -VALS160T2 PO; +VANC500V PO
[2022-08-31 16:00] VITALS: BP 109/70
--- NOTE | 2022-08-31 16:00 | NUR ---
PATIENT CONVERTED FROM TELE STATUS TO REHAB ORDERED BY DR HUNTLEY FAMILY AWARE REMAINS IN ROOM 315 ALERT VERBALLY RESPONDS BUT SHE IS DISORIENTED MOST OF THE TIME ON O2 AT 2L/M BY NASAL CANULA WITH NO SOB AT THIS TIME MID LINE REMAINS INTACT DR LITTLE STATED THAT HE WILL ORDER IVF LATER FOR THIS PATIENT.CALL LIGHTS AND HER PERSONAL BELONGINGS ARE WITHIN EASY REACH WILL CONTINUE TO OBSERVE.
[2022-08-31 20:00] VITALS: BP 109/61
[2022-08-31] MEDS: REMEDY ESSENTIAL ZINC PASTE 113 GM TOP SCH (20:39)
[2022-09-01 04:00] VITALS: BP 110/73
[2022-09-01 06:57] LABS: BILIRUBIN,DIRECT 0.1 mg/dL (0.0-0.2); BILIRUBIN,TOTAL 0.3 mg/dL (0.2-1.0); TOTAL PROTEIN, SERUM 4.8 g/dL (6.4-8.2)
[2022-09-01 07:33] VITALS: BP 119/62
[2022-09-01 07:45] LABS: *OCCULT BLOOD STOOL NEGATIVE (NEGATIVE)
[2022-09-01] MEDS: REMEDY ESSENTIAL ZINC PASTE 113 GM TOP SCH ×2 (08:43→21:13)
[2022-09-01] MEDS ORDERED: ONDANSETRON 4 MG/2 ML VIAL IV PRN (08:45)
[2022-09-01] MEDS ORDERED: ALBUTEROL SULFATE 1.25 MG/3 ML NEBU NEB PRN (08:45)
[2022-09-01] MEDS ORDERED: ACETAMINOPHEN 325 MG TABLET-SA PATIENTS-PAIN ONLY PO PRN (08:45)
[2022-09-01] MEDS ORDERED: CALMOSEPTINE 113 GM OINTMENT TP SCH (09:00)
[2022-09-01] MEDS ORDERED: REMEDY ESSENTIAL ZINC PASTE 113 GM TP SCH (09:00)
[2022-09-01] MEDS: METOPROLOL TARTRATE 25 MG TABLET PO SCH ×2 (09:17→21:11)
[2022-09-01] MEDS: APIXABAN 2.5 MG TABLET PO SCH ×2 (09:17→16:11)
[2022-09-01] MEDS: FUROSEMIDE 20 MG TABLET PO SCH (09:17)
[2022-09-01] MEDS: FLUTICASONE/VILANTEROL 1 EACH BLST.W.DEV IH SCH (09:18)
[2022-09-01] MEDS: LEVOTHYROXINE SODIUM 75 MCG TABLET PO SCH (09:23)
[2022-09-01 15:48] VITALS: BP 133/83
[2022-09-01] MEDS: MONTELUKAST SODIUM 10 MG TABLET PO SCH (17:27)
--- NOTE | 2022-09-01 18:19 | NUR ---
no events noted
--- NOTE | 2022-09-01 18:41 | NUR ---
per PT patient refused to have therapy today, refused to get up.
[2022-09-01 20:00] VITALS: BP 108/66
[2022-09-01] MEDS: TRAZODONE 50 MG TABLET PO SCH (20:59)
[2022-09-02 04:00] VITALS: BP 111/67
[2022-09-02] MEDS: PANTOPRAZOLE SODIUM 40 MG TABLET.DR PO SCH (06:47)
[2022-09-02] MEDS: LEVOTHYROXINE SODIUM 75 MCG TABLET PO SCH (06:48)
[2022-09-02 07:34] VITALS: BP 114/54
[2022-09-02] MEDS: FUROSEMIDE 20 MG TABLET PO SCH ×2 (08:59→09:00)
[2022-09-02] MEDS: ACETAMINOPHEN 325 MG TABLET PO PRN ×2 (08:59→21:02)
[2022-09-02] MEDS: REMEDY ESSENTIAL ZINC PASTE 113 GM TOP SCH ×2 (08:59→21:02)
[2022-09-02] MEDS: METOPROLOL TARTRATE 25 MG TABLET PO SCH ×2 (09:00→20:58)
[2022-09-02] MEDS: FLUTICASONE/VILANTEROL 1 EACH BLST.W.DEV IH SCH (09:00)
[2022-09-02] MEDS: APIXABAN 2.5 MG TABLET PO SCH ×2 (09:02→17:11)
[2022-09-02 16:00] VITALS: BP 119/64
[2022-09-02] MEDS: MONTELUKAST SODIUM 10 MG TABLET PO SCH (17:09)
--- NOTE | 2022-09-02 19:25 | NUR ---
Pt. is alert and oriented x4, and speaks some German, but mainly Ethiopian. Pt. participates in physical and occupational therapy per MD order. Pt. tolerates PO medications as ordered. RN held blood pressure medications in the morning due to decreased blood pressure. Pt. denies and does not exhibit signs and symptoms of low blood pressure. Pt. is on a full liquid diet, and tolerates well. No signs and symptoms of aspiration. Pt. voids adequately. Patient asks for one dose of Tylenol in the morning for her headache. Pt. denies pain rest of the shift. RN discussed plan of care with patient's family. 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 RN will pass on notes to physical therapy for further evaluation. Patient family will bring in prosthetic leg to help her participate in therapy more. Family would like to talk to infections disease doctor in regards to the diagnosis of sepsis. RN will pass onto next shift to let them become aware of family concerns. Hourly rounding done. No acute distress noted. Fall precautions in place; bed locked and bed alarm on. Will endorse care to right of way manager, RN. Addendum: 09/02/22 at 1959 by JUAN PIEDRA RN PLEASE NOTE: RN REMOVED MIDLINE ON LEFT UPPER ARM AT 10:39AM. UNABLE TO FLUSH, IV CATHETER OUT OF VEIN. CATHETER TIP INTACT. NO COMPLICATIONS.
[2022-09-02 20:00] VITALS: BP 134/61
[2022-09-02] MEDS: TRAZODONE 50 MG TABLET PO SCH (20:56)
[2022-09-03 04:00] VITALS: BP 107/47
[2022-09-03] MEDS: LEVOTHYROXINE SODIUM 75 MCG TABLET PO SCH (06:43)
[2022-09-03] MEDS: PANTOPRAZOLE SODIUM 40 MG TABLET.DR PO SCH (06:43)
[2022-09-03 08:03] VITALS: BP 112/63
[2022-09-03] MEDS: FUROSEMIDE 20 MG TABLET PO SCH (09:00)
[2022-09-03] MEDS: METOPROLOL TARTRATE 25 MG TABLET PO SCH ×2 (09:01→20:53)
[2022-09-03] MEDS: APIXABAN 2.5 MG TABLET PO SCH ×2 (09:01→16:58)
[2022-09-03] MEDS: FLUTICASONE/VILANTEROL 1 EACH BLST.W.DEV IH SCH (09:01)
[2022-09-03] MEDS: REMEDY ESSENTIAL ZINC PASTE 113 GM TOP SCH ×2 (09:02→20:54)
[2022-09-03 09:44] LABS: HEMATOCRIT 31.7 % (31.2-41.9); MEAN CORPUSCULAR HEMOGLOBIN 30.1 uug (24.7-32.8); MEAN CORPUSCULAR VOLUME 89.8 fL (75.5-95.3); PLATELET COUNT (AUTO) 536 K/uL (179-408)
--- NOTE | 2022-09-03 10:34 | NUR ---
INDIVIDUALIZED PLAN OF CARE
[2022-09-03 10:56] LABS: BILIRUBIN,TOTAL 0.3 mg/dL (0.2-1.0); CREATININE 0.9 mg/dL (0.6-1.3); TOTAL PROTEIN, SERUM 5.8 g/dL (6.4-8.2)
--- NOTE | 2022-09-03 11:18 | NUR ---
INTERDISCIPLINARY TEAM CONFERENCE
[2022-09-03 12:00] VITALS: BP 145/76
[2022-09-03 16:05] VITALS: BP 95/55
[2022-09-03] MEDS: MONTELUKAST SODIUM 10 MG TABLET PO SCH (18:00)
[2022-09-03 20:00] VITALS: BP 114/80
[2022-09-03] MEDS: TRAZODONE 50 MG TABLET PO SCH (20:54)
[2022-09-04 04:00] VITALS: BP 114/67
[2022-09-04] MEDS: LEVOTHYROXINE SODIUM 75 MCG TABLET PO SCH (06:28)
[2022-09-04] MEDS: PANTOPRAZOLE SODIUM 40 MG TABLET.DR PO SCH (06:28)
--- NOTE | 2022-09-04 07:20 | NUR ---
PT ORIENTED WITH PERIODS OF FORGETFULLNESS AND CONFUSED. SLEPT FOR LONG PERIODS CARE CONTINUE
[2022-09-04 07:39] VITALS: BP 115/60
[2022-09-04] MEDS: FUROSEMIDE 20 MG TABLET PO SCH (08:58)
[2022-09-04] MEDS: APIXABAN 2.5 MG TABLET PO SCH ×2 (08:59→17:03)
[2022-09-04] MEDS: FLUTICASONE/VILANTEROL 1 EACH BLST.W.DEV IH SCH (09:00)
[2022-09-04] MEDS: METOPROLOL TARTRATE 25 MG TABLET PO SCH ×2 (09:00→20:31)
[2022-09-04] MEDS: REMEDY ESSENTIAL ZINC PASTE 113 GM TOP SCH ×2 (09:00→20:31)
[2022-09-04 15:15] VITALS: BP 100/60
[2022-09-04] MEDS: MONTELUKAST SODIUM 10 MG TABLET PO SCH (17:02)
--- NOTE | 2022-09-04 17:50 | NUR ---
Patient alert and oriented, able to communicate simple needs and follow directions. Assisted patient with personal care/hygiene during shift at routine intervals/as needed. Patient free of pain during the shift, repositioned Q2HRS to promote comfort and facilitate pressure relief. Incontinent of both, good care provided. Continues under rehab for PT/OT skilled services as ordered and amalia. well. Patient participated in therapy/ADLS w/ no interruptions caused by pain. At high risk for falls and self injury DT poor safety awareness, generalized weakness/difficulty in walking, gait/balance and coordination impaired and RT BKA. Safety precautions observed and safety precaution reminders provided as needed. Encouraged Patient to use call light for help every time needed. One person extensive assist provided with ADLS, routine rounds and frequent visual checks done to ensure her safety. All needs anticipated and met. No unusual findings or events occurred during shift.
[2022-09-04 20:00] VITALS: BP 121/73
[2022-09-04] MEDS: TRAZODONE 50 MG TABLET PO SCH (20:31)
[2022-09-05 04:00] VITALS: BP 127/68
--- NOTE | 2022-09-05 05:58 | NUR ---
Patient slept intermittently, no acute distress noted. Denies pain/discomfort. Needs assessed and attended to. Kept clean dry and comfortable. Call light within easy reach.
[2022-09-05 06:34] LABS: HEMATOCRIT 29.8 % (31.2-41.9); MEAN CORPUSCULAR HEMOGLOBIN 30.2 uug (24.7-32.8); MEAN CORPUSCULAR VOLUME 89.2 fL (75.5-95.3); PLATELET COUNT (AUTO) 631 K/uL (179-408)
[2022-09-05] MEDS: LEVOTHYROXINE SODIUM 75 MCG TABLET PO SCH (06:36)
[2022-09-05] MEDS: PANTOPRAZOLE SODIUM 40 MG TABLET.DR PO SCH (06:36)
[2022-09-05 06:54] LABS: BILIRUBIN,TOTAL 0.3 mg/dL (0.2-1.0); CREATININE 0.9 mg/dL (0.6-1.3); PHOSPHOROUS 5.4 mg/dL (2.5-4.9); POTASSIUM 3.5 mmol/L (3.5-5.1); TOTAL PROTEIN, SERUM 5.6 g/dL (6.4-8.2)
[2022-09-05 07:31] VITALS: BP 109/67
[2022-09-05] MEDS: APIXABAN 2.5 MG TABLET PO SCH ×2 (09:21→16:45)
[2022-09-05] MEDS: METOPROLOL TARTRATE 25 MG TABLET PO SCH ×2 (09:21→21:00)
[2022-09-05] MEDS: FUROSEMIDE 20 MG TABLET PO SCH (09:21)
[2022-09-05] MEDS: FLUTICASONE/VILANTEROL 1 EACH BLST.W.DEV IH SCH (09:23)
[2022-09-05] MEDS: REMEDY ESSENTIAL ZINC PASTE 113 GM TOP SCH ×2 (09:23→21:08)
[2022-09-05] MEDS: MAGNESIUM SULFATE/D5W 100 ML IV SCH ×4 (13:18→16:42)
[2022-09-05] MEDS: ACETAMINOPHEN 325 MG TABLET PO PRN (15:02)
[2022-09-05 16:30] VITALS: BP 131/63
[2022-09-05] MEDS: MONTELUKAST SODIUM 10 MG TABLET PO SCH (16:45)
[2022-09-05 17:57] VITALS: BP 131/63
[2022-09-05 20:00] VITALS: BP 101/79
[2022-09-05] MEDS ORDERED: IV NORMAL SALINE 500 ML IV ONE (20:00)
--- NOTE | 2022-09-05 20:00 | NUR ---
Patient noted with episode of confusion, low grade temp and low BP-81/34, Unruly Baltazar JAI ALAI PLAYER notified with new order for stat labs, cxr and UA.
[2022-09-05 20:24] LABS: HEMATOCRIT 31.5 % (31.2-41.9); MEAN CORPUSCULAR HEMOGLOBIN 29.7 uug (24.7-32.8); MEAN CORPUSCULAR VOLUME 89.1 fL (75.5-95.3); PLATELET COUNT (AUTO) 684 K/uL (179-408)
[2022-09-05 20:32] LABS: MAGNESIUM 2.3 mg/dL (1.8-2.4); POTASSIUM 3.3 mmol/L (3.5-5.1)
[2022-09-05 20:49] LABS: *BILIRUBIN,URIN 1+ (NEGATIVE); *BLOOD, URINE 1+ (NEGATIVE); *CLARITY,URINE CLEAR (CLEAR); *COLOR,URINE YELLOW (YELLOW); *KETONES,URINE NEGATIVE (NEGATIVE); *UROBILINOGEN,URINE 0.2 E.U./dl (NORMAL); LEUKOCYTE ESTERASE ,URINE NEGATIVE (NEGATIVE); NITRITE, URINE NEGATIVE (NEGATIVE); UGLUCOSE NEGATIVE (NEGATIVE)
[2022-09-05 20:55] LABS: BILIRUBIN,DIRECT 0.1 mg/dL (0.0-0.2); BILIRUBIN,TOTAL 0.5 mg/dL (0.2-1.0)
[2022-09-05] MEDS: TRAZODONE 50 MG TABLET PO SCH (21:09)
--- NOTE | 2022-09-05 21:13 | NUR ---
NOTIFY EUFEMIA KOROMA, CURRENT BP OF 101/79. KCL 3.3, WBC 12.4 WITH ORDER OF NS AT 75, AND KCL 20 MEQ PO REPLACE KCL. DAUGHTER AWARE OF PRESENT CONDITION.
[2022-09-05] MEDS ORDERED: POTASSIUM CHLORIDE 10 MEQ TAB.PRT.SR PO ONE (21:15)
[2022-09-05] MEDS ORDERED: IV NS 1000 ML 1,000 ML IV PRN (21:15)
[2022-09-05 23:40] LABS: WBC,URINE 0-3 /HPF (0-3)
[2022-09-05 23:42] LABS: BACTERIA,URINE FEW /HPF (NONE SEEN); RBC,URINE 0-3 /HPF (0-3); SQUAMOUS EPITHELIAL CELL,UR FEW /HPF (NONE SEEN)
[2022-09-06] MEDS: ACETAMINOPHEN 325 MG TABLET PO PRN ×2 (00:47→15:48)
[2022-09-06 04:06] VITALS: BP 91/49
[2022-09-06] MEDS: LEVOTHYROXINE SODIUM 75 MCG TABLET PO SCH (06:39)
[2022-09-06] MEDS: PANTOPRAZOLE SODIUM 40 MG TABLET.DR PO SCH (06:39)
[2022-09-06 07:28] LABS: CREATININE 1.1 mg/dL (0.6-1.3); MAGNESIUM 1.8 mg/dL (1.8-2.4); POTASSIUM 3.7 mmol/L (3.5-5.1)
[2022-09-06 07:40] VITALS: BP 108/53
[2022-09-06] MEDS: FUROSEMIDE 20 MG TABLET PO SCH (08:06)
[2022-09-06] MEDS: FLUTICASONE/VILANTEROL 1 EACH BLST.W.DEV IH SCH (08:06)
[2022-09-06] MEDS: APIXABAN 2.5 MG TABLET PO SCH ×2 (08:06→17:02)
[2022-09-06] MEDS: METOPROLOL TARTRATE 25 MG TABLET PO SCH ×2 (08:06→20:39)
[2022-09-06] MEDS: REMEDY ESSENTIAL ZINC PASTE 113 GM TOP SCH ×2 (08:07→20:50)
[2022-09-06] MEDS: VANCOMYCIN IV 750 MG in IV DEXTROSE 5% 250 ML IV SCH (13:32)
[2022-09-06 15:55] VITALS: BP 144/59
[2022-09-06] MEDS: MONTELUKAST SODIUM 10 MG TABLET PO SCH (17:00)
[2022-09-06] MEDS ORDERED: PIPERACILLIN SODIUM/TAZOBACTAM 3.375 G in IV DEXTROSE 5% 50 ML IV SCH (18:15)
--- NOTE | 2022-09-06 18:38 | NUR ---
Received report from GILDARDO Rodriguez. Patient is alert and oriented x4 and speaks some Belarusian; and Farsi. Refused to participate in physical therapy today. Tolerated PO medications and full liquid diet well. Voiding adequately and had 1 bowel movement. Complained of pain on the right arm. heating mechanic noted redness on the right forearm, MD notified. MD assessed patient and ordered Vancomycin & Doppler. Vancomycin admin per MD order. Doppler completed, pending results. Patient had a fever 101.0*F, RN admin Tylenol per MD order. Cooling measures utilized, reduce blankets & apply ice packs. Fever has reduced to 99.7*F. No acute distress noted. Hourly rounding completed. Fall precautions in place; bed in lowest position and bed alarm on.
[2022-09-06 20:00] VITALS: BP 110/52
[2022-09-06] MEDS: TRAZODONE 50 MG TABLET PO SCH (20:39)
[2022-09-06] MEDS: PIPERACILLIN SODIUM/TAZOBACTAM 3.375 G in IV DEXTROSE 5% 100 ML IV SCH (20:52)
[2022-09-07] VITALS: BP 120/60
[2022-09-07] MEDS: ACETAMINOPHEN 325 MG TABLET PO PRN ×4 (00:43→20:22)
[2022-09-07 04:00] VITALS: BP 118/68
[2022-09-07] MEDS: LEVOTHYROXINE SODIUM 75 MCG TABLET PO SCH (06:44)
[2022-09-07] MEDS: PANTOPRAZOLE SODIUM 40 MG TABLET.DR PO SCH (06:44)
[2022-09-07] MEDS: PIPERACILLIN SODIUM/TAZOBACTAM 3.375 G in IV DEXTROSE 5% 100 ML IV SCH ×3 (06:44→21:23)
[2022-09-07 07:23] LABS: POTASSIUM 3.7 mmol/L (3.5-5.1)
[2022-09-07 07:57] VITALS: BP 114/48
[2022-09-07] MEDS: FLUTICASONE/VILANTEROL 1 EACH BLST.W.DEV IH SCH (08:08)
[2022-09-07] MEDS: APIXABAN 2.5 MG TABLET PO SCH ×2 (08:09→16:14)
[2022-09-07] MEDS: FUROSEMIDE 20 MG TABLET PO SCH (08:10)
[2022-09-07] MEDS: METOPROLOL TARTRATE 25 MG TABLET PO SCH ×2 (08:12→20:23)
[2022-09-07] MEDS: REMEDY ESSENTIAL ZINC PASTE 113 GM TOP SCH ×2 (08:12→20:25)
[2022-09-07] MEDS: VANCOMYCIN IV 750 MG in IV DEXTROSE 5% 250 ML IV SCH (12:46)
[2022-09-07 13:25] VITALS: BP 118/68
[2022-09-07 16:55] VITALS: BP 133/60
[2022-09-07] MEDS: MONTELUKAST SODIUM 10 MG TABLET PO SCH (17:04)
[2022-09-07] MEDS: TRAZODONE 50 MG TABLET PO SCH (20:23)
[2022-09-07 20:47] VITALS: BP 110/50
[2022-09-08] VITALS: BP 123/63
[2022-09-08 04:00] VITALS: BP 130/70
[2022-09-08] MEDS: LEVOTHYROXINE SODIUM 75 MCG TABLET PO SCH (05:49)
[2022-09-08] MEDS: PANTOPRAZOLE SODIUM 40 MG TABLET.DR PO SCH (05:49)
[2022-09-08] MEDS: PIPERACILLIN SODIUM/TAZOBACTAM 3.375 G in IV DEXTROSE 5% 100 ML IV SCH (05:49)
[2022-09-08] MEDS: ACETAMINOPHEN 325 MG TABLET PO PRN ×4 (05:56→20:28)
[2022-09-08 07:08] LABS: MAGNESIUM 1.3 mg/dL (1.8-2.4); PHOSPHOROUS 4.1 mg/dL (2.5-4.9)
[2022-09-08 07:11] LABS: HEMATOCRIT 27.2 % (31.2-41.9); MEAN CORPUSCULAR HEMOGLOBIN 30.3 uug (24.7-32.8); MEAN CORPUSCULAR VOLUME 88.8 fL (75.5-95.3); PLATELET COUNT (AUTO) 635 K/uL (179-408)
[2022-09-08 07:15] LABS: POTASSIUM 3.7 mmol/L (3.5-5.1)
[2022-09-08 07:43] VITALS: BP 105/45
[2022-09-08] MEDS: FUROSEMIDE 20 MG TABLET PO SCH (09:00)
[2022-09-08] MEDS: METOPROLOL TARTRATE 25 MG TABLET PO SCH ×2 (09:00→20:28)
[2022-09-08] MEDS: FLUTICASONE/VILANTEROL 1 EACH BLST.W.DEV IH SCH (09:00)
[2022-09-08] MEDS: REMEDY ESSENTIAL ZINC PASTE 113 GM TOP SCH ×2 (09:33→20:30)
[2022-09-08] MEDS: APIXABAN 2.5 MG TABLET PO SCH ×2 (09:46→17:20)
[2022-09-08] MEDS: MAGNESIUM SULFATE/D5W 100 ML IV SCH ×4 (10:45→13:00)
[2022-09-08] MEDS: PIPERACILLIN SODIUM/TAZOBACTAM 3.375 G in IV DEXTROSE 5% 50 ML IV SCH ×2 (12:00→18:00)
[2022-09-08] MEDS: VANCOMYCIN IV 750 MG in IV DEXTROSE 5% 250 ML IV SCH (13:00)
[2022-09-08] MEDS ORDERED: ALPRAZOLAM 0.25 MG TABLET PO PRN ×2 (13:30→15:15)
--- NOTE | 2022-09-08 15:20 | NUR ---
SON AWARE OF PATIENT'S S MIDLINE INSERTION REFUSAL. SON CURRENTLY AT BEDSIDE VISITING PATIENT. Olaf HAQUE RN
--- NOTE | 2022-09-08 15:47 | NUR ---
BP 163/82, HR 115, TEMP 100.3. CALL PLACED OUT TO MD, AWAITING CALL BACK. Michelle HAQUE RN
--- NOTE | 2022-09-08 15:55 | NUR ---
BRANDIE TYLENOL ADMIN. Michelle HAQUE RN
[2022-09-08 16:00] VITALS: BP 163/82
--- NOTE | 2022-09-08 16:40 | NUR ---
BP 139/76 HR 113 TEMP 101.4. PEDIATRIC CNS PLACED ANOTHER CALL OUT TO DR NICE. AWAITING CALL BACK. Michelle HAQUE RN
[2022-09-08] MEDS: MONTELUKAST SODIUM 10 MG TABLET PO SCH (17:20)
--- NOTE | 2022-09-08 17:28 | NUR ---
MIDLINE TO HARMAN COMPROMISED. MD AWARE. NEW ORDERS TO D/C MIDLINE TO HARMAN AND INSERT NEW LINE. PRACTITIONER CAME TO INSERT MIDLINE, PATIENT REFUSED. MD ONSITE AND SAW PATIENT'S REFUSAL. UNABLE TO ADMINISTER IV MEDS, INCLUDING IV ABT AND MAG. Olaf HAQUE RN.
--- NOTE | 2022-09-08 17:34 | NUR ---
WRITER GRIJALVA ICEPACK TO ASSIST WITH LOWERING TEMP. TEMP CURRENTLY 100.9. Olaf HAQUE RN
--- NOTE | 2022-09-08 17:35 | NUR ---
VITALS CURRENTLY BP 125/67 HR 106, 02 93% @2L. RESP 22. Olaf HAQUE RN
[2022-09-08 20:00] VITALS: BP 92/54
[2022-09-08] MEDS: TRAZODONE 50 MG TABLET PO SCH (20:28)
--- NOTE | 2022-09-09 00:28 | NUR ---
pt refuse iv insertion on rt handand iv med .Md and family is aware of patient refusal .
[2022-09-09 04:00] VITALS: BP 106/58
--- NOTE | 2022-09-09 06:25 | NUR ---
pt refused bllod draw from lab . pt was informed that she needs the blood draw and she finally agrees to the lab draw.
[2022-09-09] MEDS: PANTOPRAZOLE SODIUM 40 MG TABLET.DR PO SCH (07:00)
[2022-09-09] MEDS: LEVOTHYROXINE SODIUM 75 MCG TABLET PO SCH (07:00)
[2022-09-09 07:08] LABS: HEMATOCRIT 27.5 % (31.2-41.9); MEAN CORPUSCULAR HEMOGLOBIN 30.4 uug (24.7-32.8); MEAN CORPUSCULAR VOLUME 88.5 fL (75.5-95.3); PLATELET COUNT (AUTO) 668 K/uL (179-408)
[2022-09-09 07:23] LABS: ABG BASE EXCESS 0.5 mmol/L; ABG HCO3 24.8 mmol/L; ABG PCO2 38.6 mmHg (35.0-45.0); ABG PH 7.425 (7.350-7.450); ABG PO2 333.4 mmHg (75.0-100.0); ABG SITE RIGHT RADIAL; ABG TOTAL HEMOGLOBIN 11.1 G/dL (12.0-16.0); COHb 0.3 % (0.5-1.5); MetHb 0.5 % (0.0-1.5); O2Hb 98.6 % (94.0-97.0)
[2022-09-09 07:39] LABS: POTASSIUM 3.6 mmol/L (3.5-5.1)
[2022-09-09 07:41] VITALS: BP 112/66
[2022-09-09 08:30] LABS: MAGNESIUM 1.2 mg/dL (1.8-2.4)
[2022-09-09] MEDS ORDERED: MAGNESIUM SULFATE/D5W 100 ML IV SCH (08:45)
[2022-09-09] MEDS: FUROSEMIDE 20 MG TABLET PO SCH (09:49)
[2022-09-09] MEDS: METOPROLOL TARTRATE 25 MG TABLET PO SCH ×2 (09:58→21:00)
[2022-09-09] MEDS: FLUTICASONE/VILANTEROL 1 EACH BLST.W.DEV IH SCH ×2 (09:59→18:28)
[2022-09-09] MEDS: APIXABAN 2.5 MG TABLET PO SCH ×2 (10:01→17:20)
[2022-09-09] MEDS: REMEDY ESSENTIAL ZINC PASTE 113 GM TOP SCH ×2 (10:02→21:12)
[2022-09-09] MEDS ORDERED: VANCOMYCIN IV 1,000 MG in IV DEXTROSE 5% 250 ML IV SCH ×2 (14:00→20:00)
[2022-09-09 15:14] VITALS: BP 105/82
[2022-09-09] MEDS ORDERED: MAGNESIUM OXIDE 400 MG TABLET PO ONE (17:00)
[2022-09-09] MEDS: ACETAMINOPHEN 325 MG TABLET PO PRN (17:19)
[2022-09-09] MEDS: MAGNESIUM SULFATE/D5W 100 ML IV SCH ×2 (18:25→19:00)
[2022-09-09] MEDS: PIPERACILLIN SODIUM/TAZOBACTAM 3.375 G in IV DEXTROSE 5% 50 ML IV SCH ×3 (18:26)
[2022-09-09] MEDS: MONTELUKAST SODIUM 10 MG TABLET PO SCH (18:36)
[2022-09-09] MEDS ORDERED: TRAMADOL HCL 50 MG TABLET PO PRN (19:00)
[2022-09-09 20:00] VITALS: BP 95/44
[2022-09-09] MEDS: TRAZODONE 50 MG TABLET PO SCH (21:10)
[2022-09-10] MEDS: PIPERACILLIN SODIUM/TAZOBACTAM 3.375 G in IV DEXTROSE 5% 50 ML IV SCH ×3 (00:53→13:53)
[2022-09-10 04:00] VITALS: BP 100/50
[2022-09-10] MEDS: PANTOPRAZOLE SODIUM 40 MG TABLET.DR PO SCH (06:11)
[2022-09-10 07:56] VITALS: BP 111/48
[2022-09-10] MEDS: FUROSEMIDE 20 MG TABLET PO SCH (10:23)
[2022-09-10] MEDS: APIXABAN 2.5 MG TABLET PO SCH (10:24)
[2022-09-10 10:36] VITALS: BP 129/89
[2022-09-10] MEDS: METOPROLOL TARTRATE 25 MG TABLET PO SCH (10:36)
[2022-09-10] MEDS: REMEDY ESSENTIAL ZINC PASTE 113 GM TOP SCH (10:37)
[2022-09-10] MEDS: FLUTICASONE/VILANTEROL 1 EACH BLST.W.DEV IH SCH (10:44)
[2022-09-10 13:04] LABS: CREATININE 0.7 mg/dL (0.6-1.3); POTASSIUM 3.5 mmol/L (3.5-5.1)
[2022-09-10 13:05] LABS: MAGNESIUM 1.2 mg/dL (1.8-2.4)
[2022-09-10] MEDS ORDERED: MAGNESIUM SULFATE/D5W 100 ML IV SCH (14:30)
--- NOTE | 2022-09-10 16:12 | NUR ---
Patient discharge from acute rehab. To be transferred to Inpatient telemetry acute care due to SOB and AMS. Patient and family previously informed regarding change in level of care.
== END 2022-09-10 16:16 | disposition short-term general hospital (02) | DRG 871 ==
LOC: TELE3 09-09 07:05
PROVIDERS: ADMIT Physical Medicine & Rehabilitation Pain Medicine; ATTEND Physical Medicine & Rehabilitation Pain Medicine
PROC: 05HB33Z Insertion of Infusion Device into Right Basilic Vein, Percutaneous Approach (ICD-10-PCS; principal; 2022-09-05)
PROC: 05HC33Z Insertion of Infusion Device into Left Basilic Vein, Percutaneous Approach (ICD-10-PCS; 2022-09-09)
DX: A41.9 Sepsis, unspecified organism (principal); E43 Unspecified severe protein-calorie malnutrition; G92.8 Other toxic encephalopathy; I50.31 Acute diastolic (congestive) heart failure; J69.0 Pneumonitis due to inhalation of food and vomit; N17.0 Acute kidney failure with tubular necrosis; D68.59 Other primary thrombophilia; J98.11 Atelectasis; D25.9 Leiomyoma of uterus, unspecified; D64.9 Anemia, unspecified; E03.9 Hypothyroidism, unspecified; E11.51 Type 2 diabetes mellitus with diabetic peripheral angiopathy without gangrene; E78.5 Hyperlipidemia, unspecified; F03.90 Unspecified dementia, unspecified severity, without behavioral disturbance, psychotic disturbance, mood disturbance, and anxiety; I11.0 Hypertensive heart disease with heart failure; M19.90 Unspecified osteoarthritis, unspecified site; M40.209 Unspecified kyphosis, site unspecified; D72.10 Eosinophilia, unspecified; D72.821 Monocytosis (symptomatic); K42.9 Umbilical hernia without obstruction or gangrene; R00.0 Tachycardia, unspecified; B34.9 Viral infection, unspecified; K52.9 Noninfective gastroenteritis and colitis, unspecified; A08.4 Viral intestinal infection, unspecified; M81.0 Age-related osteoporosis without current pathological fracture; Z89.511 Acquired absence of right leg below knee; Z90.49 Acquired absence of other specified parts of digestive tract; R54 Age-related physical debility; R74.01 Elevation of levels of liver transaminase levels; J45.909 Unspecified asthma, uncomplicated; M51.36 Other intervertebral disc degeneration, lumbar region
CPT/HCPCS: 36415; 36600; 71045; 83605; 83735; 84100; 85025; 86140; 87040; 93005; 97535-GO-CO; J2405; J2543; J3370; J3475; J7040; J7050

== ENCOUNTER 2022-09-10 16:29 | Inpatient (IN) | payer MEDICARE, OTHER ==
[~2022-09-10 16:29] MED LIST changes: -ASPI81TA31 PO; -CELE200C PO; -COLC0.6C3 PO; -CYAN-10 IM; -DENO60DI SQ; -DICL100G26 TP; -ERGO500040 PO; -ESOM40CA PO; -EVOL140P3 SQ; -EZET10TA15 PO; -FAMO-132 PO; -FEXO-65 PO; -FURO40TA5 PO; -IPRA3AMP23 NEB; -LOSA100T31 PO; -METH-817 PO; -PRED10TA PO; -SIMV40TA2 PO; -TRAM50TA2 PO
[2022-09-10 16:54] VITALS: BP 95/41
[2022-09-10] MEDS ORDERED: ALBUTEROL SULFATE 1.25 MG/3 ML NEBU NEB PRN (19:30)
[2022-09-10] MEDS ORDERED: [UNRECOGNIZED DRUG - OTHER] IV SCH (19:30)
[2022-09-10] MEDS ORDERED: VANCOMYCIN IV SCH (19:30)
[2022-09-10 20:00] VITALS: BP 101/50
[2022-09-10] MEDS: PIPERACILLIN SODIUM/TAZOBACTAM 3.375 G in IV DEXTROSE 5% 50 ML IV SCH (20:30)
[2022-09-10] MEDS ORDERED: MONTELUKAST SODIUM 10 MG TABLET PO SCH (21:00)
[2022-09-10] MEDS ORDERED: TRAZODONE 50 MG TABLET PO SCH (21:00)
[2022-09-10] MEDS: METOPROLOL TARTRATE 25 MG TABLET PO SCH (21:07)
[2022-09-10] MEDS: ACETAMINOPHEN 325 MG TABLET PO PRN (21:11)
[2022-09-10] MEDS: APIXABAN 2.5 MG TABLET PO SCH (21:16)
[2022-09-10] MEDS: REMEDY ESSENTIAL ZINC PASTE 113 GM TP SCH (21:17)
[2022-09-11] VITALS: BP 96/46
[2022-09-11] MEDS ORDERED: VANCOMYCIN IV 1,000 MG in IV DEXTROSE 5% 250 ML IV SCH ×2
[2022-09-11] MEDS: PIPERACILLIN SODIUM/TAZOBACTAM 3.375 G in IV DEXTROSE 5% 50 ML IV SCH ×2 (01:53→10:46)
[2022-09-11] MEDS: ACETAMINOPHEN 325 MG TABLET PO PRN ×2 (02:52→10:38)
[2022-09-11 04:00] VITALS: BP 104/47
[2022-09-11] MEDS ORDERED: LEVOTHYROXINE SODIUM 75 MCG TABLET PO SCH (07:00)
[2022-09-11] MEDS ORDERED: PANTOPRAZOLE SODIUM 40 MG TABLET.DR PO SCH (07:00)
[2022-09-11 08:00] VITALS: BP 108/50
[2022-09-11] MEDS ORDERED: FLUTICASONE/VILANTEROL 1 EACH BLST.W.DEV IH SCH (09:00)
[2022-09-11] MEDS: METOPROLOL TARTRATE 25 MG TABLET PO SCH (09:00)
[2022-09-11] MEDS: FUROSEMIDE 20 MG TABLET PO SCH ×2 (09:00→10:38)
[2022-09-11 09:22] LABS: MEAN CORPUSCULAR HEMOGLOBIN 30.6 uug (24.7-32.8); MEAN CORPUSCULAR VOLUME 88.4 fL (75.5-95.3); PLATELET COUNT (AUTO) 707 K/uL (179-408)
[2022-09-11 09:33] LABS: CREATININE 0.8 mg/dL (0.6-1.3); POTASSIUM 3.2 mmol/L (3.5-5.1)
[2022-09-11 09:41] LABS: ABG BASE EXCESS 2.8 mmol/L; ABG HCO3 28.8 mmol/L; ABG PCO2 51.1 mmHg (35.0-45.0); ABG PH 7.369 (7.350-7.450); ABG PO2 204.1 mmHg (75.0-100.0); ABG SITE RIGHT RADIAL; ABG TOTAL HEMOGLOBIN 10.3 G/dL (12.0-16.0); COHb 0.3 % (0.5-1.5); MetHb 0.2 % (0.0-1.5); O2Hb 98.8 % (94.0-97.0); VENT MODE Mask - NRB 10L
[2022-09-11 09:49] LABS: BILIRUBIN,TOTAL 0.2 mg/dL (0.2-1.0); PHOSPHOROUS 3.7 mg/dL (2.5-4.9); TOTAL PROTEIN, SERUM 5.5 g/dL (6.4-8.2)
[2022-09-11 09:52] LABS: MAGNESIUM 1.1 mg/dL (1.8-2.4)
[2022-09-11] MEDS: APIXABAN 2.5 MG TABLET PO SCH (10:39)
[2022-09-11] MEDS: REMEDY ESSENTIAL ZINC PASTE 113 GM TP SCH (10:40)
[2022-09-11] MEDS ORDERED: MAGNESIUM SULFATE/D5W 100 ML IV SCH (11:30)
[2022-09-11 11:48] VITALS: BP 101/51
[2022-09-11] MEDS ORDERED: POTASSIUM CHLORIDE 20 MEQ POWDER PACKET PO ONE (12:00)
[2022-09-11 14:50] LABS: NEUTROPHILS % (MANUAL) 0 % (42-75)
--- NOTE | 2022-09-11 15:16 | NUR ---
Patient found during morning rounding sleeping and unable to respond arousing effects. Rapid response called. MD contacted and responding orders where completed. Patient's son was informed regarding rapid response. Patient aroused. Patient AAOx2 (Person and place) Critical lab info received (Mag 1.1). MD informed. Patient's son and grand daughter at bedside. AMA release requested along with medical records. Patient departed AMA via wheelchair and support oxygen(2L) to private vehicle (Son and grand daughter in accompaniment).
== END 2022-09-11 14:25 | disposition left against medical advice (07) | DRG 177 ==
LOC: TELE3 16:29
PROVIDERS: ADMIT Internal Medicine; ATTEND Internal Medicine
DX: J69.0 Pneumonitis due to inhalation of food and vomit (principal); E43 Unspecified severe protein-calorie malnutrition; G92.8 Other toxic encephalopathy; I50.31 Acute diastolic (congestive) heart failure; N17.0 Acute kidney failure with tubular necrosis; D68.59 Other primary thrombophilia; J98.11 Atelectasis; D64.9 Anemia, unspecified; E03.9 Hypothyroidism, unspecified; Z74.09 Other reduced mobility; F03.90 Unspecified dementia, unspecified severity, without behavioral disturbance, psychotic disturbance, mood disturbance, and anxiety; K52.9 Noninfective gastroenteritis and colitis, unspecified; M19.90 Unspecified osteoarthritis, unspecified site; E78.5 Hyperlipidemia, unspecified; R13.10 Dysphagia, unspecified; Z89.511 Acquired absence of right leg below knee; M81.0 Age-related osteoporosis without current pathological fracture; R00.0 Tachycardia, unspecified; E11.9 Type 2 diabetes mellitus without complications; J45.909 Unspecified asthma, uncomplicated; I11.0 Hypertensive heart disease with heart failure; E11.51 Type 2 diabetes mellitus with diabetic peripheral angiopathy without gangrene; M40.209 Unspecified kyphosis, site unspecified; Z68.26 Body mass index [BMI] 26.0-26.9, adult
CPT/HCPCS: 36415; 36600; 70030-TC; 70450; 71045; 83735; 84100; 84484; 85025; 93005; G0378; J2543; J3370; J7050